=== PATIENT | male | born 1965 | race African-American/Black ===

== ENCOUNTER 2018-07-09 08:18 | Outpatient (CLI) | payer MEDICARE, MEDICAID ==
--- NOTE | 2018-07-09 09:16 | RAD ---
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 FINDINGS: There is moderate multilevel end plate degenerative change as well as facet osteoarthritis. A mild d egree of spondylolisthesis (grade I) is present at L4-5. No acute compression fracture. IMPRESSION: Multilevel degenerative change in the lumbar spine. There is grade I spondylolisthesis at L4-5. POS: C
--- NOTE | 2018-07-09 10:51 | MRI ---
MRI of the lumbar spine: 07/09/2018 COMPARISON: None available HISTORY: Low back pain radiating into bilateral lower extremities with numbness and tingling TECHNIQUE: Multiplanar multisequence MR imaging of the lumbar spine is obtained without contrast. FINDINGS: The sagittal STIR imaging demonstrates no focal area of osseous marrow edema. On the basis of congenitally short pedicles there is prominent diffuse central canal stenosis noted t hroughout the lumbar spine. Assuming 5 lumbar type vertebral bodies, the conus medullaris terminates at the T12-L1 level. T12-L1: There is bilateral facet hypertrophy and hypertrophy of the ligamentum flavum. There is mild central canal stenosis. Mild bilateral neural foraminal stenosis. L1-2: Bilateral facet hypertrophy and hypertrophic ligamentum flavum. Mild central canal stenosis and mild bilateral neural foraminal stenosis. L2-3: There is disc space narrowing and disc desiccation with mild disc bulge. There is prominent anthony ateral facet hypertrophy and hypertrophy of the ligamentum flavum with mild/moderate central canal stenosis and mild bilateral neural foraminal stenosis. L3-4: There is disc space narrowing disc desiccation and disc bulge. There is prominent bilateral fac et hypertrophy and hypertrophy of the ligamentum flavum with severe central canal stenosis and moderate bilateral neural foraminal stenosis. L4-5: There is disc space narrowing, disc desiccation, and disc bulge. There is prominent bilateral f acet hypertrophy and hypertrophy of the ligamentum flavum with severe central canal stenosis and moderate bilateral neural foraminal stenosis, left greater than right. L5-S1: Disc space narrowing disc desiccation and disc bulge with moderate/severe central canal stenos is. Prominent bilateral facet hypertrophy with severe right and moderate left neural foraminal stenosis. The imaged retroperitoneal structures appear grossly unremarkable. 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 Multilevel degenerative disc disease and facet hypertrophic change leads to a prominent central canal and neural foraminal stenosis at numerous levels as detailed above.
== END 2018-07-09 08:19 | disposition home or self-care (01) ==
LOC: BICMRI 08:18
PROVIDERS: ATTEND Family Medicine
DX: M47.26 Other spondylosis with radiculopathy, lumbar region (principal); G89.4 Chronic pain syndrome; M51.16 Intervertebral disc disorders with radiculopathy, lumbar region; M43.16 Spondylolisthesis, lumbar region; M48.061 Spinal stenosis, lumbar region without neurogenic claudication; M48.07 Spinal stenosis, lumbosacral region
CPT/HCPCS: 72100; 72148

== ENCOUNTER 2020-01-29 18:14 | Inpatient (IN) | payer MEDICARE, MEDICAID ==
[~2020-01-29 18:14] MED LIST: Iopamidol-370 76% 500 ML 1 ML ONE
[2020-01-29] MEDS ORDERED: Cefepime 2 GM VIAL ONE (18:32)
[2020-01-29] MEDS ORDERED: Clindamycin/D5W 900 mg/50 ml Premix Bag ONE (18:32)
[2020-01-29 18:51] LABS: Hemoglobin 8.7 g/dL (14.0-18.0); Mean Corpuscular HGB CONC 30.8 g/dL (32.0-36.0); Mean Corpuscular Hemoglobin 23.8 pg (27.0-31.0); Mean Corpuscular Volume 77.5 fL (78.0-98.0); Platelet Count 572 thou/uL (130-400); RBC Distribution Width 16.9 % (11.5-14.5); Red Blood Cell (RBC) Count 3.66 mill/uL (4.70-6.10); White Blood Cell (WBC) Count 11.9 thou/uL (4.8-10.8)
--- NOTE | 2020-01-29 19:13 | CT ---
PELVIC CT WITH CONTRAST: HISTORY: Right gluteal wound FINDINGS: Visualized solid organs, alimentary canal and retroperitoneal structures do not demonstrate any acute abnormality. There is no acute abnormality with regards to the perineum or pelvic structures. There is destruction of the right aspect of the sacrum. There is abnormal soft tissue attenuation rep lacing the right aspect of the sacrum, including encroachment upon the right S1 and S2 and S3 neural foramina. Abnormal soft tissue density is noted posterior/superior to the sacrum as well as an terior to the sacrum along the right hemipelvis/expected course of the sacral plexus. There is lucency and destruction involving the right sacrum and right ischium. There is atrophy of the right gluteal musculature. There is an air pocket with a thick wall along the posterior aspect of the proximal right extremity. This lesion measures 5.0 x 2.5 cm. There is a connection with the overlying dermis. Small amounts of fluid are noted. Additionally there is a large r more inferior collection with small pockets of air and fluid measuring 7.8 x 3.0 cm. Induration of the overlying dermis is noted. There is also induration along the medial aspect of the left and ri ght gluteal region. Additional inflammatory changes are noted in the medial left subcutaneous fat extending into the dermis. Inflammatory change extends to the tip of the coccyx. IMPRESSION: 1. Abnormal soft tissue density involving the right aspect of the sacrum. There is extension into the right iliac bone as well as the anterior right pelvic soft tissues, along the expected region of the sacral plexus. The possibility of a metastatic/malignant lesion cannot be excluded. 2. Extensive inflammatory and infectious changes involving the left and right gluteal subcutaneous fa t and soft tissues. There are at least 2 separate soft tissue abscesses identified. There is abnormal induration involving the left and right aspect of the gluteal soft tissues. There is also ab normal inflammatory change at the tip of the coccyx. Results study discussed with Dr. Castro 01/29/2020 at 7:12 PM Code CR Transcribed Date/Time: 01/29/2020 7:29 PM
[2020-01-29 19:18] LABS: Band 28 % (5-11); Eosinophils 1 % (0-10); Hypochromia SLIGHT = 6-15 cells (100X) (0-5/hpf); Lymphocytes 15 % (21-51); MDiff Complete? YES; Microcytosis SLIGHT = 6-15 cells (100X) (0-5/hpf); Monocytes 5 % (0-10); Neutrophil 49 % (42-75); Platelet Morphology Comment Appears Increased; Polychromasia SLIGHT = 2-3 cells (100X) (0-2/hpf); Reactive Lymphocytes 1 % (0-10); Target Cells SLIGHT = 2-5 cells (100X) (0-1/hpf)
[2020-01-29 19:20] LABS: Actual Bicarbonate (HCO3v) 27 mEq/L (22-28); Analyzer IN Cardio ER; Base Excess 3.5 mEq/L (-2.0 to +3.0); Calcium, Ionized (venous) 1.22 mmol/L (1.16-1.32); Chloride (VBG) 106 mmol/L (98-106); Hemoglobin (Hb) 9.3 g/dL (13.1-17.2); Potassium (VBG) 3.64 mmol/L (3.70-5.30); Sodium 140.2 mmol/L (133-146); pH (venous) 7.49 (7.32-7.43)
[2020-01-29] MEDS ORDERED: Morphine 4 MG/ML VIAL ONE (19:31)
[2020-01-29 20:15] LABS: ALT (SGPT) 14 U/L (8-55); AST (SGOT) 15 U/L (5-34); Alkaline Phosphatase 91 U/L (40-110); Anion Gap 15 mmol/L (10-20); BUN (Urea Nitrogen) 8 mg/dL (8.4-25.7); Bilirubin, Total 0.2 mg/dL (0.2-1.2); Calc. Creatinine Clearance 178 mL/min (70-130); Calcium 9.5 mg/dL (7.8-10.44); Carbon Dioxide 26 mmol/L (22-29); Chloride 106 mmol/L (98-107); Globulin 4.5 g/dL (2.4-3.5); Glucose 109 mg/dL (70-105); Potassium 3.7 mmol/L (3.5-5.1); Protein, Total 7.5 g/dL (6.0-8.3); Sodium 143 mmol/L (136-145)
--- NOTE | 2020-01-29 20:48 | RAD ---
Exam:2 views right hip HISTORY: Large gluteal wound. Pressure ulcers and gluteal region COMPARISON: None FINDINGS: Extensive subcutaneous emphysema and soft tissue swelling. IMPRESSION: Soft tissue swelling and subcutaneous emphysema compatible with known abscesses. Refer to pelvic CT for further detail.
[2020-01-29] MEDS ORDERED: Acetaminophen 325 MG TAB PO PRN (23:45)
[2020-01-29] MEDS ORDERED: Sodium Chloride 0.9% 1,000 ML IV SCH (23:45)
[2020-01-30] MEDS ORDERED: HYDROcodone/Acetaminophen 5/325 mg Tablet PO PRN ×2 (00:04→06:35)
[2020-01-30] MEDS ORDERED: hydrALAZINE 20 MG/ML VIAL SLOW IVP PRN ×2 (00:04→06:35)
[2020-01-30] MEDS ORDERED: cloNIDine 0.1 MG TAB PO PRN ×2 (00:04→06:35)
[2020-01-30] MEDS ORDERED: Promethazine HCl 12.5 MG in Sodium Chloride 0.9% 50 ML IVPB PRN ×2 (00:04→06:35)
[2020-01-30] MEDS ORDERED: Ondansetron PF 4 MG/2 ML Vial IVP PRN ×2 (00:04→06:35)
[2020-01-30] MEDS ORDERED: Acetaminophen 325 MG TAB PO PRN ×2 (00:04→06:35)
[2020-01-30] MEDS ORDERED: Guaifenesin DM 100-10/5 ML UDCUP PO PRN ×2 (00:04→06:35)
[2020-01-30] MEDS ORDERED: Morphine 2 MG/ML VIAL SLOW IVP PRN ×2 (00:04→09:24)
[2020-01-30] MEDS ORDERED: Labetalol HCl 100 MG/20 ML VIAL SLOW IVP PRN ×2 (00:04→06:35)
--- NOTE | 2020-01-30 00:06 | PDOC.HHP ---
Hospitalist HPI - History of Present Illness R back/gluteal pain History of Present Illness: Pateint is a 54 year old male with PMH GERD, HTN, DM2, Chronic back pain who presents to ED for R gluteal plain/back/hip pain. Patient has a history of GERD, HTN, DM2, Chronic back pain, and chronic R gluteal abscesses/wounds, patient reports that his wounds have been there since 1995 and he manages them by himsel f at home. In ED, patient tachycardic, wounds appear erythematous and erythematous and tunneling, Imaging reveals mulitple abscesses, Dr Del Real consulted and requests NPO past midnight. WBC 11.9, hgb 8.7. Patient given broad spectrum ABX, to be admitted for sepsis and infected sacral wounds. of note, CT pelvis mentions infection tracks from right aspect of the sacrum w/ extension into the right iliac bone as well as the anterior right pelvic soft tissues, along the expected region of the sacral plexus. There are at least 2 separate soft tissue abscesses identified on CT with extensive inflammation. Hospitalist ROS - Review of Systems Constitutional: reports: weakness, malaise. denies: fever, chills, sweats, other Eyes: denies: pain, vision change, conjunctivae inflammation, eyelid inflammation, redness, other ENT: denies: ear pain, ear discharge, nose pain, nose discharge, nose congestion, mouth pain, mouth swelling, throat pain, throat swelling, other Respiratory: denies: cough, dry, shortness of breath, hemoptysis, SOB with excertion, pleuritic pain, sputum, wheezing, other Cardiovascular: denies: chest pain, palpitations, orthopnea, paroxysmal noc. dyspnea, edema, light headedness, other Gastrointestinal: denies: nausea, vomiting, abdominal pain, diarrhea, constipation, melena, hematochezia, other Genitourinary: denies: dysuria, frequency, incontinence, hematuria, retention, other Musculoskeletal: reports: back pain. denies: neck pain, shoulder pain, arm pain, hand pain, leg pain, foot pain, other Skin: reports: rash, lesions, other (per HPI) Neurological: denies: weakness, numbness, incoordination, change in speech, confusion, seizures, other All other systems reviewed; all pertinent +/- noted in HPI/Subj - Medication Medications: Tylenol-Codeine #3 ThuJan 29, 2020 20:24 TIFFANIE Andrew Jeffery tablet : Strength - 300 mg-30 mg : ORAL Patient Dose: 1 tab(s) Oral every 6 hours PRN. amoxicillin ThuJan 29, 2020 20:24 TIFFANIE Andrew Jeffery capsule : Strength - 500 mg : ORAL Patient Dose: 1 cap(s) Oral 2 times a day. ferrous sulfate ThuJan 29, 2020 20:25 TIFFANIE Andrew Jeffery tablet,delayed release (DR/EC) : Strength - 324 mg (65 mg iron) : ORAL Patient Dose: 1 tab(s) Oral 2 times a day. clindamycin phosphate topical ThuJan 29, 2020 20:26 TIFFANIE Andrew Jeffery lotion : Strength - 1 % : TOPICAL Patient Dose: 1 nisha Topical 2 times a day. FLUoxetine ThuJan 29, 2020 20:26 TIFFANIE Andrew Jeffery capsule : Strength - 20 mg : ORAL Patient Dose: 1 tab(s) Oral once a day (in the morning). atenolol ThuJan 29, 2020 20:26 TIFFANIE Andrew Jeffery tablet : Strength - 25 mg : ORAL Patient Dose: 1 tab(s) Oral once a day. diazePAM oral ThuJan 29, 2020 20:27 TIFFANIE Andrew Jeffery tablet : Strength - 10 mg : ORAL Patient Dose: 1 tab(s) Oral every 8 hours PRN. metFORMIN ThuJan 29, 2020 20:28 TIFFANIE Andrew Jeffery solution : Strength - 500 mg/5 mL : ORAL Patient Dose: 1.5 mg Oral once a day. traMADol ThuJan 29, 2020 20:28 TIFFANIE Andrew Jeffery tablet : Strength - 50 mg : ORAL Patient Dose: 1-2 tab(s) Oral every 6 hours PRN. furosemide oral ThuJan 29, 2020 20:30 TIFFANIE Andrew Jeffery tablet : Strength - 20 mg : ORAL Patient Dose: 0.5 tab(s) Oral once a day.As needed for swelling BLE. - Exam General Appearance: NAD, awake alert Eye: PERRL, anicteric sclera ENT: normocephalic atraumatic, no oropharyngeal lesions, moist mucosa Neck: supple, symmetric, no JVD, no thyromegaly, no lymphadenopathy, no carotid bruit Heart: RRR, no murmur, no gallops, no rubs, normal peripheral pulses Respiratory: CTAB, no wheezes, no rales, no ronchi, normal chest expansion, no tachypnea, normal percussion Gastrointestinal: soft, non-tender, non-distended, normal bowel sounds, no palpable masses, no hepatomegaly, no splenomegaly, no bruit Extremities: no cyanosis, no clubbing, no edema Skin: normal turgor Skin - other findings: extensive R gluteal and L gluteal abscesses, malodorous, appears to track Neurological: cranial nerve grossly intact, normal sensation to touch, no weakness, no focal deficits, no new deficit Musculoskeletal: normal tone, normal strength, no muscle wasting Psychiatric: normal affect, normal behavior, A&O x 3 Hospitalist Results - Labs Result Diagrams: 01/30/20 05:11 01/30/20 05:11 Lab results: WBC 11.9 thou/uL (4.8-10.8) H 01/29/20 18:22 Hgb 8.7 g/dL (14.0-18.0) L 01/29/20 18:22 Hct 28.4 % (42.0-52.0) L 01/29/20 18:22 MCV 77.5 fL (78.0-98.0) L 01/29/20 18:22 Plt Count 572 thou/uL (130-400) H 01/29/20 18:22 Band Neuts % (Manual) 28 % (5-11) H 01/29/20 18:22 VBG pH 7.49 (7.32-7.43) H 01/29/20 18:50 VBG pCO2 36.1 mmHg (42.0-51.0) L 01/29/20 18:50 VBG pO2 156.7 mmHg (35.0-45.0) H 01/29/20 18:50 Sodium 143 mmol/L (136-145) 01/29/20 19:34 Potassium 3.7 mmol/L (3.5-5.1) 01/29/20 19:34 Chloride 106 mmol/L (98-107) 01/29/20 19:34 Carbon Dioxide 26 mmol/L (22-29) 01/29/20 19:34 BUN 8 mg/dL (8.4-25.7) L 01/29/20 19:34 Creatinine 0.70 mg/dL (0.7-1.3) 01/29/20 19:34 Glucose 109 mg/dL (70-105) H 01/29/20 19:34 Lactic Acid 1.5 mmol/L (0.5-2.2) 01/29/20 18:22 Calcium 9.5 mg/dL (7.8-10.44) 01/29/20 19:34 Total Bilirubin 0.2 mg/dL (0.2-1.2) 01/29/20 19:34 AST 15 U/L (5-34) 01/29/20 19:34 ALT 14 U/L (8-55) 01/29/20 19:34 Alkaline Phosphatase 91 U/L (40-110) 01/29/20 19:34 Serum Total Protein 7.5 g/dL (6.0-8.3) 01/29/20 19:34 Albumin 3.0 g/dL (3.5-5.0) L 01/29/20 19:34 Additional comment: RADIOLOGY [facility] Jan 30, 2020 00:27 MD Matthew, Terrell XR Hip Rt 2-3 View Observe DT: [place] Jan 29, 2020 18:30 HIP2R Exam:2 views right hip HISTORY: Large gluteal wound. Pressure ulcers and gluteal region COMPARISON: None FINDINGS: Extensive subcutaneous emphysema and soft tissue swelling. IMPRESSION: Soft tissue swelling and subcutaneous emphysema compatible with known abscesses. Refer to pelvic CT for further detail. CT Pelvis W Con Observe DT: [place] Jan 29, 2020 18:[address] WITH CONTRAST: HISTORY: Right gluteal wound FINDINGS: Visualized solid organs, alimentary canal and retroperitoneal structures do not demonstrate any acute abnormality. There is no acute abnormality with regards to the perineum or pelvic structures. There is destruction of the right aspect of the sacrum. There is abnormal soft tissue attenuation rep lacing the right aspect of the sacrum, including encroachment upon the right S1 and S2 and S3 neural foramina. Abnormal soft tissue density is noted posterior/superior to the sacrum as well as an terior to the sacrum along the right hemipelvis/expected course of the sacral plexus. There is lucency and destruction involving the right sacrum and right ischium. There is atrophy of the right gluteal musculature. There is an air pocket with a thick wall along the posterior aspect of the proximal right extremity. This lesion measures 5.0 x 2.5 cm. There is a connection with the overlying dermis. Small amounts of fluid are noted. Additionally there is a large r more inferior collection with small pockets of air and fluid measuring 7.8 x 3.0 cm. Induration of the overlying dermis is noted. There is also induration along the medial aspect of the left and ri ght gluteal region. Additional inflammatory changes are noted in the medial left subcutaneous fat extending into the dermis. Inflammatory change extends to the tip of the coccyx. IMPRESSION: 1. Abnormal soft tissue density involving the right aspect of the sacrum. There is extension into the right iliac bone as well as the anterior right pelvic soft tissues, along the expected region of the sacral plexus. The possibility of a metastatic/malignant lesion cannot be excluded. 2. Extensive inflammatory and infectious changes involving the left and right gluteal subcutaneous fa t and soft tissues. There are at least 2 separate soft tissue abscesses identified. There is abnormal induration involving the left and right aspect of the gluteal soft tissues. There is also ab normal inflammatory change at the tip of the coccyx. Results study discussed with Dr. Castro 01/29/2020 at 7:12 PM Code CR Transcribed Date/Time: 01/29/2020 7:29 PM Hospitalist H&P A/P - Plan Plan: Pateint is a 54 year old male with PMH GERD, HTN, DM2, Chronic back pain who presents to ED for R gluteal plain/back/hip pain. # extensive gluteal wound with signs of tracking and likely osteomyelitis - patient reports that his wounds have been there since 1995 and he manages them by himself at home # sepsis - due to wound infection, tachycardia/leukocytosis, follow culture results sent In ED, patient tachycardic, wounds appear erythematous and erythematous and tu nneling, Imaging reveals mulitple abscesses, Dr Del Real consulted and requests NPO past midnight. WBC 11.9, hgb 8.7. Patient given broad spectrum ABX, to be admitted for sepsis and infected sacral wounds. of note, CT pelvis mentions infection tracks from right aspect of the sacrum w/ extension into the right iliac bone as well as the anterior right pelvic soft tissues, along the expected region of the sacral plexus. There are at least 2 separate soft tissue abscesses identified on CT with extensive inflammation. - appreciate surgery Dr. Del Real expertise, patient NPO - MRI pelvis and spine ordered to confirm or rule out osteomyelitis and also to ensure no epidural abscesses - start vancomycin/unasyn - consider ID consult if osteo confirmed on MRI # GERD # HTN # DM2 # Chronic back pain - continue home meds, SSI, PRN HTN and pain medications ordered
[2020-01-30] MEDS ORDERED: Electrolyte Replacement Protocol 1 EACH FS PRN ×2 (00:15→06:45)
[2020-01-30] MEDS: Ampicillin/Sulbactam 3 GM in Sodium Chloride 0.9% 100 ML IVPB SCH ×4 (00:25→18:15)
[2020-01-30 00:56] VITALS: BMI 34.8
[2020-01-30] MEDS: Vancomycin 1.5 GRAM/300 ML BAG 1.5 GM in Premix Bag 1 BAG IVPB SCH ×2 (04:56→13:21)
[2020-01-30 05:06] LABS: SARS-CoV-2 MS2 Positive; SARS-CoV-2 N Gene Negative; SARS-CoV-2 S Gene Negative; SARS-CoV-2 by NAA Not Detected (NotDetected); SARS-CoV-2 orf1ab Negative
[2020-01-30 05:23] LABS: #Eosinphils 0.1 thou/uL (0.0-0.7); #Lymphocytes 1.6 thou/uL (1.20-3.40); #Monocytes 1.1 thou/uL (0.11-0.59); #Neutrophils 6.8 thou/uL (1.40-6.50); %Basophils 0.1 % (0.0-1.0); %Eosinophils 1.5 % (0.0-10.0); %Lymphocytes 16.4 % (21.0-51.0); %Monocytes 11.2 % (0.0-10.0); %Neutrophils 70.8 % (42.0-75.0); Mean Corpuscular HGB CONC 30.4 g/dL (32.0-36.0); Mean Corpuscular Hemoglobin 23.3 pg (27.0-31.0); Mean Corpuscular Volume 76.7 fL (78.0-98.0); Mean Platelet Volume 7.8 fL (7.4-10.4); Platelet Count 486 thou/uL (130-400); RBC Distribution Width 16.8 % (11.5-14.5); Red Blood Cell (RBC) Count 3.41 mill/uL (4.70-6.10); White Blood Cell (WBC) Count 9.6 thou/uL (4.8-10.8)
[2020-01-30 05:46] LABS: Anion Gap 12 mmol/L (10-20); BUN (Urea Nitrogen) 6 mg/dL (8.4-25.7); Calc. Creatinine Clearance 215 mL/min (70-130); Calcium 9.3 mg/dL (7.8-10.44); Carbon Dioxide 25 mmol/L (22-29); Chloride 106 mmol/L (98-107); Glucose 110 mg/dL (70-105); Magnesium 1.8 mg/dL (1.6-2.6); Potassium 3.7 mmol/L (3.5-5.1); Sodium 139 mmol/L (136-145)
[2020-01-30] MEDS ORDERED: Magnesium 2 GM/50 ML 2 GM in Premix Bag 1 BAG IVPB SCH ×2 (06:30→08:00)
[2020-01-30] MEDS ORDERED: Dextrose 5% in Water 1,000 ML IV PRN (06:53)
[2020-01-30] MEDS ORDERED: Dextrose 50% Abboject 50 ML SYRINGE SLOW IVP PRN (06:53)
[2020-01-30] MEDS ORDERED: HumaLOG 300 UNITS/3 ML VIAL SC PRN (06:53)
--- NOTE | 2020-01-30 07:28 | PRG ---
DATE OF SERVICE: 01/30/2020 I personally interviewed and examined the patient, agree with documentation of Mekhi Choi PA-C, dated 01/30/2020. Briefly, Master Camejo is a 54-year-old gentleman, who has been noticing for at least a number of months some low back pain in the midline and off to the right. He began to feel ill and came to the hospital for evaluation. CT examination of pelvis revealed a lytic lesion in the right side of the sacrum involving the S1 and S2 segments. This seems to be round and expansile of the bone itself. Mr. Camejo does not remember having significant fevers or chills at home. Among the electronically recorded vital signs, I do not see any fevers. The T-max was 99.1 degrees Fahrenheit. Blood pressures have been 130s to 140s. Heart rate is in the 80s to 90s. On examination, Mr. Camejo feels more comfortable, lying on his left side than on his back or his right. He has some pain, which is quite severe and tenderness in the low back over the sacrum. There is some radiation of that pain in the S1 distribution and some in the S2 as well. I reviewed CT imaging, but I do not see MR imaging. I do not see an MR with contrast of the chest, abdomen, and pelvis looking for primary malignancy. Mr. Camejo needs further workup. I am not convinced this is abscess. This just as likely or perhaps more so to be a metastatic lesion. The lesion does not look blastic, but rather lytic and expansile. CT of the chest, abdomen, and pelvis, and MRI with and without contrast of the sacrum, both helpful in determining the diagnosis. If we are still left with questions, then a CT-guided aspirate with cytology will be helpful. If this turns out to be a sacral tumor, it is not an area where I have operated in quite some time and he would benefit from referral elsewhere with the need of surgical intervention on the sacral lesion. Job ID: [id number]
--- NOTE | 2020-01-30 08:04 | CON ---
DATE OF CONSULTATION: 01/30/2020 HISTORY OF PRESENT ILLNESS: Mr. Camejo is a 54-year-old male with past medical history of diabetes, hypertension, GERD, chronic back pain. He presented to the emergency room with a right gluteal pain radiating to his back and right lower extremity. He reports that his abscess has been there since 1995 and continues to grow and now there is concern that the abscess has entered into the spinal cord area causing an epidural abscess. He declines any right leg weakness, but does have general weakness and malaise. REVIEW OF SYSTEMS: CONSTITUTIONAL: Denies fever or chills. ENT: Denies change of vision or hearing. CARDIAC: Denies chest pain, shortness of breath, or diaphoresis. PULMONARY: Denies shortness of breath, cough, or hemoptysis. GI: Denies abdominal pain, nausea, vomiting, diarrhea, or change in stool formation or consistency. : Denies trouble with urination, frequency of urination, or bloody urine. SKIN: Reports abscess in the right gluteal. Denies bleeding. MUSCULOSKELETAL: As per history of present illness. PSYCHOLOGICAL: As per history of present illness. NEUROLOGICAL: As per history of present illness. MEDICATIONS: 1. Tylenol No. 3. 2. Amoxicillin 500 mg. 3. Ferrous sulfate 324 mg. 4. Clindamycin topical 1%. 5. Fluoxetine 20 mg. 6. Atenolol 25 mg. 7. Diazepam 10 mg. 8. Metformin 500 mg. 9. Tramadol 50 mg. 10. Furosemide 20 mg. ALLERGIES: NO KNOWN DRUG ALLERGIES. MEDICAL HISTORY: GERD, hypertension, diabetes, chronic back pain, right gluteal abscess in 1995. PAST SURGICAL HISTORY: No surgical history. SOCIAL HISTORY: The patient denies alcohol use. The patient currently uses marijuana. The patient occasionally uses alcohol. FAMILY HISTORY: Noncontributory to this case. PHYSICAL EXAMINATION: VITAL SIGNS: BP 140/80, pulse 83, and temperature 98.7. HEENT: Pupils are equal. Extraocular movements are intact. NECK: Soft, supple. No masses are noted. Range of motion is intact and nonpainful. NEUROLOGIC: Awake, alert, and oriented x3. Memory, attention, fund of knowledge, and language are normal. Cranial nerves are grossly intact. Lower extremities, normal. Free active range of motion in all extremities. No focal motor weakness. No reflex asymmetry. IMAGING: Pelvic CT, there is extensive inflammation and infection change involving the left and right gluteal subcutaneous soft tissues. There is abnormal induration involving the left and right aspect of the gluteal soft tissues. There is also abnormal inflammation and change in the tip of the coccyx. There is question if this infection is encroaching the spinal cord causing an epidural abscess. LABORATORY DATA: WBC 19.9, RBC 3.66, hemoglobin 8.7, platelets 572. Sodium 143. PLAN: MRI of spine and pelvis with and without contrast. Question of muscular abscess, osteomyelitis or neoplasm. Further evaluation and treatment following the MRI. Continue current antibiotics. Job ID: [id number] [facility]
[2020-01-30] MEDS ORDERED: Famotidine 20 MG TAB PO SCH (09:00)
[2020-01-30] MEDS ORDERED: Heparin 5,000 UNITS/ML VIAL SC SCH (09:00)
[2020-01-30] MEDS: HYDROcodone/Acetaminophen 5/325 mg Tablet PO PRN ×3 (09:49→22:22)
[2020-01-30] MEDS: Heparin 5,000 UNITS/ML VIAL SC SCH ×3 (09:50→21:08)
[2020-01-30] MEDS: Famotidine 20 MG TAB PO SCH ×2 (09:53→21:08)
[2020-01-30] MEDS: Morphine 4 MG/ML VIAL SLOW IVP PRN ×3 (10:03→21:08)
[2020-01-30] MEDS: Polyethylene Glycol 3350 17 GM Packet PO SCH (10:05)
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
[2020-01-30] MEDS ORDERED: Iopamidol-370 76% 500 ML 1 ML ONE (13:09)
--- NOTE | 2020-01-30 14:27 | CT ---
EXAM: CT NECK SOFT TISSUE POST CONTRAST: HISTORY:Cancer workup. Pelvic pain. COMPARISON:None CORRELATION:None FINDINGS: Brain parenchyma: No pathologic enhancement of the visualized brain parenchyma. Sinuses: Adequate aeration of the visualized paranasal sinuses and mastoid air cells. Orbits: Appropriate location of the ocular lenses. Symmetric attenuation the optic nerves and ocular rectus muscles. Retrobulbar fat is preserved. Nasopharynx:Adequate aeration. No mucosal abnormality. Oral cavity:Aerodigestive tract is patent. No mucosal abnormality. Limited evaluation of the oral cav ity due to dental amalgam artifact. Midline fatty raphae of the tongue is preserved. There are extensive dental caries. Hypopharynx: No mucosal abnormality. Epiglottis has a normal caliber. Preepiglottic fat is preserved .. Larynx: No mucosal abnormality with regards to the supraglottic, glottic and subglottic larynx. Paraspinal muscles: Symmetric attenuation of the paraspinal muscles and symmetric attenuation of the sternocleidomastoid muscles.. Parotid and salivary glands: Symmetric attenuation of the parotid and submandibular glands Vessels: No significant stenosis. Technique limits evaluation. Evaluation of the common carotid arter ies results in mass effect upon the posterior hypopharynx. Thyroid gland: Unremarkable. Spine: Vertebral body height is maintained. No fracture. Multilevel degenerative changes of the cervi jese spine. There are varying degrees of central canal stenosis and foraminal narrowing, due to degenerative change Lymph nodes: No evidence of lymphadenopathy by size criteria Lung apices and upper mediastinum: No acute abnormality. IMPRESSION: No CT evidence of mass or lymphadenopathy in the soft tissues of the neck. There is extensive periodo ntal disease with multiple dental caries. Exam: Chest CT with contrast Abdomen CT with contrast Pelvic CT with contrast HISTORY: Sacral mass/neoplasm. Evaluate for additional lesions. Correlation: None COMPARISON: Pelvic CT 01/29/2020 FINDINGS: Chest CT: Mediastinum: No mass, lymphadenopathy or hematoma Aorta: Normal caliber Heart: Normal heart size. No significant pericardial effusion Trachea and central bronchi: Patent Pleural spaces: No significant pleural fluid Right lung: Scarring and atelectasis in the lower lobe. No mass, consolidation or suspicious nodules Left lung:No mass, consolidation or suspicious nodules Pneumothorax: None Abdomen CT: Gallbladder: Unremarkable Portal vein: Patent Liver: Appropriate enhancement. Spleen: Appropriate enhancement Pancreas: Appropriate enhancement Adrenal glands: Appropriate enhancement Lymphadenopathy: No gastrohepatic, retrocrural or periportal lymphadenopathy Kidneys: Symmetric enhancement. No obstructive uropathy. Mesentery: No mass, lymphadenopathy, free air or free fluid Alimentary canal: No evidence of bowel obstruction. Normal ileocecal junction. Normal caliber appendi x. Scattered fecal material in a nondistended, nondilated colon. Pelvis CT: No free air or free fluid. Unremarkable urinary bladder. Enlarged right pelvic lymph node measures 1. 8 x 1.4 cm. There is edema and enlargement of the right pelvic muscle with hypoattenuation. Intramuscular hematoma or possible infected fluid collection are differential considerations. There i s a destructive mass involving the right aspect of the sacrum with mild destruction of the right ischium. There are multiple areas of soft tissue infection artery described on previous CT. Osseous structures:Sacral lesion as described above. Additional lesions are not identified. IMPRESSION: Solitary lesion in the sacrum, worrisome for a malignant deposit. Lesion is amenable to CT-guided bio psy
--- NOTE | 2020-01-30 16:39 | PDOC.HOSPP ---
- Subjective Encounter Date: 01/30/20 Subjective: Seen and examined at bedside this morning. Denies any significant overnight events. Remains with significant sacral/pelvic pain mainly exacerbated by position/movement. Denies any fever or chills. He has a history of chronic abscess to buttocks area dating many years back. Currently being evaluated for abscess, osteomyelitis and possible metastatic lesion to pelvis. - Objective Vital Signs & Weight: Vital Signs (12 hours) Temp Pulse Resp BP Pulse Ox 01/30/20 11:07 99.2 F 91 16 133/71 94 L 01/30/20 08:00 97.7 F 89 16 135/77 97 Weight Weight 229 lb 1 oz I&O: 01/29/20 01/30/20 01/31/20 06:59 06:59 06:59 Intake Total 1320 Output Total 1300 Balance 20 Result Diagrams: 01/30/20 05:11 01/30/20 05:11 Additional Labs: Accuchecks 01/30/20 01/30/20 15:58 11:08 POC Glucose 69 L 99 Radiology Reviewed by me: Yes Hospitalist ROS - Review of Systems Constitutional: reports: weakness (Refers generalized weakness). denies: fever, chills, sweats, malaise, other Eyes: denies: pain, vision change, conjunctivae inflammation, eyelid inflammation, redness, other Respiratory: denies: cough, dry, shortness of breath, hemoptysis, SOB with excertion, pleuritic pain, sputum, wheezing, other Cardiovascular: denies: chest pain, palpitations, orthopnea, paroxysmal noc. dyspnea, edema, light headedness, other Gastrointestinal: denies: nausea, vomiting, abdominal pain, diarrhea, constipation, melena, hematochezia, other Musculoskeletal: reports: back pain, other (Pelvic/sacral pain) Skin: reports: rash, lesions, other (Chronic wound to buttocks, no significant discharge or malodor) - Medication Medications: Active Medications Generic Name Dose Route Start Last Admin Trade Name Freq PRN Reason Stop Dose Admin Hydrocodone Bitart/Acetaminophen 2 tab 01/30/20 09:24 01/30/20 09:49 Hydrocodone/Acetaminophen 5/325 Mg Tablet PO 2 tab Q4H PRN Administration Severe Pain (7-10) Famotidine 20 mg 01/30/20 09:00 01/30/20 09:53 Famotidine 20 Mg Tab PO 20 mg BID JARRET Administration Heparin Sodium (Porcine) 5,000 units 01/30/20 09:00 01/30/20 09:52 Heparin 5,000 Units/Ml Vial SC 5,000 units BID JARRET Administration Ampicillin Sodium/Sulbactam 100 mls @ 200 mls/hr 01/29/20 23:59 01/30/20 13:22 Sodium 3 gm/ Sodium Chloride IVPB 100 mls Q6HR JARRET Administration Vancomycin HCl 1.5 gm/ Device 300 mls @ 200 mls/hr 01/30/20 04:00 01/30/20 13:21 IVPB 300 mls 0400,1200,2000 JARRET Administration Morphine Sulfate 4 mg 01/30/20 09:24 01/30/20 16:21 Morphine 4 Mg/Ml Vial SLOW IVP 4 mg Q4H PRN Administration Breakthrough Pain Polyethylene Glycol 17 gm 01/30/20 09:00 01/30/20 10:05 Polyethylene Glycol 3350 17 Gm Packet PO 17 gm DAILY JARRET Administration - Exam General Appearance: NAD, awake alert Heart: RRR, no murmur, no gallops, no rubs, normal peripheral pulses Respiratory: CTAB, no wheezes, no rales, no ronchi, normal chest expansion, no tachypnea, normal percussion Gastrointestinal: soft, non-tender, non-distended, normal bowel sounds, no palpable masses, no hepatomegaly, no splenomegaly, no bruit Extremities: no cyanosis, no clubbing, no edema Skin - other findings: Chronic wounds to gluteal area, possible tunneling Hosp A/P - Plan A/P: Back pain with evidence of chronic wounds to gluteal area. Imaging suggestive of possible abscess with fluid collection as well as destructive lesion to pelvis. # Back pain: Back/right gluteal/pelvic/sacral pain appears to be multifactorial and related to chronic pelvic abscesses as well as possible desctructive lesion to pelvic bone. CT with contrast of chest/abd/pelvis did not reveal other concerning lesions. Patient did not tolerate MRI of the spine to rule out osteo/epidural abscess. Discussion remains as to what is the best next step in management. Surgery and neurosurgery teams follow. Continue with current course of antibiotics. Will await further input from multidisciplinary team. 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 During exam patient does not appear septic. Will continue current antibiotic regimen. Pending further work up will consider ID consultation for further recommendations at time of discharge. # Destructive bone lesion: CT C/A/P w contrast without evidence of other lesions. Pelvic structure could be amenable for CT guided biopsy. Will await further input by surgery & neurosurgery. Keep NPO after midnight. # HTN: Continue with current medication regimen. # DM: Continue with current medication regimen. DISPOSITION: Multiple issues including chronic abscesses to pelvic region and destructive structure to bone. Possible CT guided biopsy to the area vs transfer to other facility for higher level of care. Will consider ID input once next step from surgical stand point is better defined.
[2020-01-30 19:19] LABS: Vancomycin, Trough 41.8 ug/mL
[2020-01-30] MEDS ORDERED: Vancomycin 1.5 GRAM/300 ML BAG 1.5 GM in Premix Bag 1 BAG IVPB SCH (20:00)
[2020-01-31] MEDS: Ampicillin/Sulbactam 3 GM in Sodium Chloride 0.9% 100 ML IVPB SCH ×4 (00:05→20:07)
[2020-01-31] MEDS: Vancomycin HCl 1.25 GM in Sodium Chloride 0.9% 250 ML 250 ML IVPB SCH ×3 (00:05→16:55)
[2020-01-31] MEDS: Morphine 4 MG/ML VIAL SLOW IVP PRN ×3 (01:07→23:29)
[2020-01-31] MEDS: HYDROcodone/Acetaminophen 5/325 mg Tablet PO PRN ×4 (02:44→20:02)
[2020-01-31 05:39] LABS: #Eosinphils 0.3 thou/uL (0.0-0.7); #Lymphocytes 1.4 thou/uL (1.20-3.40); #Neutrophils 5.9 thou/uL (1.40-6.50); %Basophils 0.2 % (0.0-1.0); %Eosinophils 3.2 % (0.0-10.0); %Lymphocytes 16.6 % (21.0-51.0); %Monocytes 11.5 % (0.0-10.0); %Neutrophils 68.5 % (42.0-75.0); Mean Corpuscular HGB CONC 30.3 g/dL (32.0-36.0); Mean Corpuscular Hemoglobin 23.7 pg (27.0-31.0); Mean Corpuscular Volume 78.2 fL (78.0-98.0); Mean Platelet Volume 7.7 fL (7.4-10.4); Platelet Count 467 thou/uL (130-400); RBC Distribution Width 16.7 % (11.5-14.5); Red Blood Cell (RBC) Count 3.37 mill/uL (4.70-6.10); White Blood Cell (WBC) Count 8.6 thou/uL (4.8-10.8)
[2020-01-31 05:56] LABS: ALT (SGPT) 8 U/L (8-55); AST (SGOT) 9 U/L (5-34); Albumin 2.6 g/dL (3.5-5.0); Alkaline Phosphatase 79 U/L (40-110); Anion Gap 11 mmol/L (10-20); BUN (Urea Nitrogen) 4 mg/dL (8.4-25.7); Bilirubin, Direct 0.1 mg/dL (0.1-0.3); Bilirubin, Total 0.2 mg/dL (0.2-1.2); Calc. Creatinine Clearance 208 mL/min (70-130); Calcium 9.3 mg/dL (7.8-10.44); Carbon Dioxide 27 mmol/L (22-29); Chloride 104 mmol/L (98-107); Glucose 108 mg/dL (70-105); Potassium 3.4 mmol/L (3.5-5.1); Protein, Total 6.6 g/dL (6.0-8.3); Sodium 139 mmol/L (136-145)
[2020-01-31] MEDS ORDERED: Magnesium 2 GM/50 ML 2 GM in Premix Bag 1 BAG IVPB SCH (06:30)
[2020-01-31] MEDS ORDERED: Potassium Chloride 20 MEQ TAB PO SCH (06:45)
--- NOTE | 2020-01-31 07:19 | PRG ---
DATE OF SERVICE: 01/31/2020 When I saw Mr. Camejo this morning, I was anticipating an MR imaging, but I do not see any. He still has the posterior gluteal pain radiating to the right hip and upper thigh. There is no pain radiating past the knee, but there is numbness in the bottom of both feet. Among the electronically recorded vital signs, I see a maximum temperature of 99.3 degrees Fahrenheit. Blood pressures have been in the 130s to 140s. I do not find any change on his examination. I will await the results of the MR. If this is obvious abscess given the infectious processes in the gluteal area in the tip of the coccyx, then antibiotics will be the treatment without surgical intervention. If this is tumor, we will need to search for a primary. I have spoken with each of the 3 other neurosurgeons in our group. None of whom have operated on sacral tumor since residency, so it will be beneficial to him to have a tumor resection where there is a multidisciplinary pelvic surgery, orthopedic surgery and neurosurgery team. If imaging is equivocal with regard to tumor versus abscess, then, a needle biopsy could be contemplated and a culture. Job ID: [id number] MTDD
[2020-01-31] MEDS: Polyethylene Glycol 3350 17 GM Packet PO SCH (09:19)
[2020-01-31] MEDS: Famotidine 20 MG TAB PO SCH ×2 (09:19→20:02)
[2020-01-31] MEDS: Heparin 5,000 UNITS/ML VIAL SC SCH ×2 (09:19→20:02)
[2020-01-31] MEDS ORDERED: Magnevist 469MG/ML 20 ML VIAL ONE ×2 (10:47)
[2020-01-31] MEDS ORDERED: Morphine 4 MG/ML VIAL SLOW IVP PRN (11:54)
--- NOTE | 2020-01-31 13:08 | PDOC.GSPN ---
Surgery Progress Note: Subj - Subjective Narrative: Patient in MRI. Await results/ neurosurgery recommendations. Will likely require transfer to address pelvic lesion. Surgery Progress Note: Obj - Vital signs Vital signs: Vital Signs - Most Recent Temp Pulse Resp BP Pulse Ox 97.4 F L 78 12 153/94 H 99 01/31/20 12:19 01/31/20 12:19 01/31/20 12:19 01/31/20 12:19 01/31/20 12:19 Surgery Progress Note: Results - Labs Result Diagrams: 01/31/20 05:13 01/31/20 05:13 Lab results: Laboratory Results - last 12 hr 01/31/20 01/31/20 01/31/20 05:13 05:13 11:22 WBC 8.6 RBC 3.37 L Hgb 8.0 L Hct 26.4 L MCV 78.2 MCH 23.7 L MCHC 30.3 L RDW 16.7 H Plt Count 467 H MPV 7.7 Neutrophils % 68.5 Lymphocytes % 16.6 L Monocytes % 11.5 H Eosinophils % 3.2 Basophils % 0.2 Neutrophils # 5.9 Lymphocytes # 1.4 Monocytes # 1.0 H Eosinophils # 0.3 Basophils # 0.0 Sodium 139 Potassium 3.4 L Chloride 104 Carbon Dioxide 27 Anion Gap 11 BUN 4 L Creatinine 0.61 L Estimated GFR (MDRD) Greater than 90 Glucose 108 H POC Glucose 76 Calcium 9.3 Magnesium 2.0 Total Bilirubin 0.2 Direct Bilirubin 0.1 AST 9 ALT 8 Alkaline Phosphatase 79 Serum Total Protein 6.6 Albumin 2.6 L
--- NOTE | 2020-01-31 14:34 | MRI ---
Exam: Lumbar spine MRI with and without contrast HISTORY: Evaluate for epidural abscess. Pain. COMPARISON: 06/29/2018. CORRELATION: CT 01/30/2020. FINDINGS: There is abnormal T1 marrow signal intensity involving the right aspect of the sacrum, incompletely e valuated. The lumbar vertebra have appropriate T1 marrow signal intensity. No evidence of a pathologic fracture. There is T2 and STIR hyperintensity along the right aspect of the sacrum. There is appropriate signal intensity in the visualized paraspinal muscles. There is edema involving the right piriformis muscle, incompletely evaluated. There is a small amount of fluid in the presacral fat. There is evidence of fluid along the anterior and posterior aspect of the thecal sac a t the S1, S2 and S3 levels. Postcontrast images demonstrate enhancement. There is a probable posterior epidural fluid collection, measuring 2.2 cm in the craniocaudal dimension, best appreciated on the sagittal images. Postcontrast images also demonstrate abnormal enhancement along the presacral fat and along the right aspect of the sacrum. There is heterogeneous enhancement involving the presumed soft tissue mass in the right aspect of the sacrum and iliac bone, incompletely evaluated on this current exam. Conus medullaris does not appear to be low-lying. Postcontrast images do not demonstrate evidence of enhancement with regards to the nerve roots. T12-L1: Adequate disc hydration. No significant central canal stenosis or significant neural foramina l narrowing. L1-L2: Adequate disc hydration. No significant central canal stenosis or significant neural foraminal narrowing. L2-L3: Adequate disc hydration. Mild loss of disc space height. There is ligamentum flavum thickening and facet hypertrophy. No significant central canal stenosis. Mild bilateral neural foraminal narrowing. L3-L4: Mild loss of disc space height. Broad-based disc bulge, ligamentum flavum thickening and facet hypertrophy result in moderate to severe central canal stenosis. Moderate bilateral neural foraminal narrowing. L4-L5: Adequate disc hydration. No significant loss of disc space height. Broad-based disc bulge, lig amentum flavum thickening and facet hypertrophy result in severe central canal stenosis. There is fluid in bilateral facet joints. Moderate bilateral neural foraminal narrowing. L5-S1: Adequate disc hydration. Broad-based disc bulge, ligamentum flavum thickening and facet hypert rophy result in moderate to severe central canal stenosis. There is fluid in both facet joints. Moderate bilateral neural foraminal narrowing. IMPRESSION: 1. Multilevel degenerative changes of the lumbar spine as above. 2. Abnormal enhancement along the anterior and posterior epidural space at the level of the sacrum. T here is also abnormal enhancement along the presacral fat. Possibility of an epidural and paraspinal infectious/inflammatory process should be considered. Note, there is a soft tissue space-o ccupying mass involving the right aspect of the sacrum, worrisome for malignancy/metastases. Enhancement along the anterior and posterior epidural space may also in part be due to extension of t umor. CT-guided biopsy is recommended to differentiate between tumor versus infection. Results of study discussed with Dr. Mcconnell. 01/31/2020 at 2:33 PM Code CR Transcribed Date/Time: 01/31/2020 2:40 PM
--- NOTE | 2020-01-31 15:00 | MRI ---
Exam: Pelvic MRI with and without contrast HISTORY: Evaluate for epidural abscess. COMPARISON: None. FINDINGS: There is abnormal T1 marrow signal intensity involving the right aspect of the S1, S2, S3 and S4 vert ebral bodies. There is abnormal signal intensity involving the right aspect of the ischium. T2-weighted images demonstrate associated hyperintensity. There also appears to be abnormal hyperinte nsity involving the right gluteal muscles as well as the right piriformis muscle. There is T2 hyperintensity with peripheral enhancement involving the right piriformis muscle suggesting intramusc ular abscesses. Postcontrast images demonstrate mild anterior and posterior epidural enhancement along the sacrum and presacral fat. There is abnormal heterogeneous enhancement involving the right a spect of the ischium and sacrum. There is obliteration of the right S1, S2 nerve roots secondary to abnormal signal intensity, worrisome for neoplasm until proven otherwise. There are incompletely evaluated but previously identified multiple gluteal soft tissue abscesses as well as fistulous connections between the septations fat and the overlying dermis. There is inflammatory change of the dermis. The right piriformis muscle abscess measures approximately 3.2 x 2.6 cm. There does appear to be a sm all abscess posterior to the right aspect of the S2 vertebral body, measuring 1.7 cm. IMPRESSION: 1. Evidence of subcutaneous and soft tissue abscess is as described above. 2. Abnormal signal intensity involving the right aspect of the sacrum and ischium. Component of infla mmation may be present. However, given the obliteration of neural foramina and the overall soft tissue appearance on recent CT, a compounding neoplastic process/mass is suspected. Consider further evaluation with CT-guided biopsy. Findings discussed with Dr. Mcconnell on 01/31/2020 at the time of this dictation Code CR Transcribed Date/Time: 01/31/2020 4:12 PM
--- NOTE | 2020-01-31 15:50 | MRI ---
MRI THORACIC SPINE WITH AND WITHOUT CONTRAST: 01/31/20 INDICATIONS: Back pain. Assess for epidural abscess. Thoracic vertebrae maintain normal height and alignment and exhibit normal signal. Disc spaces are pr eserved. There is evidence of degenerative disc change with disc protrusion and spondylosis at the C7-T1 level which appears to produce cord compression. This is not adequately evaluated on this study. No signif icant disc bulge or protrusion in the thoracic spine. Thoracic cord signal appears normally maintaine d. There is no evidence of epidural fluid or abscess collection. No abnormal enhancement identified. IMPRESSION: 1. Unremarkable MRI of thoracic spine. 2. Multilevel degenerative disc changes in the cervical spine which is confirmed on recent CT of neck, 01/30/20 which did confirm cord compression and central canal stenosis in the cervical spine. POS: AGW
--- NOTE | 2020-01-31 17:01 | PDOC.HOSPP ---
- Subjective Encounter Date: 01/31/20 Subjective: Seen and examined at bedside this morning. Denies any significant overnight events. Remains with significant sacral/pelvic pain mainly exacerbated by position/movement. Denies any fever or chills. He has a history of chronic abscess to buttocks area dating many years back. Currently being evaluated for abscess, osteomyelitis and possible metastatic lesion to pelvis. Did undergo MRI of the spine which shows a soft tissue space occupying mass involving the right sacrum concerning for malignancy. There is also some abnormal enhancement of the presacral fat with concerns for para spinal infectious or inflammatory process including extension of possible tumor. Planning for CT guided biopsy in 24 hrs. Surgery and neurosugery follows. - Objective Vital Signs & Weight: Vital Signs (12 hours) Temp Pulse Resp BP Pulse Ox 01/31/20 12:19 97.4 F L 78 12 153/94 H 99 01/31/20 08:40 98 01/31/20 08:36 97.7 F 78 16 120/77 98 Weight Admit Weight 229 lb 1 oz Weight 229 lb 1 oz I&O: 01/30/20 01/31/20 02/01/20 06:59 06:59 06:59 Intake Total 1320 1680 Output Total 1300 1700 Balance 20 -20 Result Diagrams: 01/31/20 05:13 01/31/20 05:13 Additional Labs: Accuchecks 01/31/20 01/31/20 16:14 11:22 POC Glucose 100 76 Radiology Reviewed by me: Yes Hospitalist ROS - Review of Systems Constitutional: denies: fever, chills, sweats, weakness, malaise, other Respiratory: denies: cough, dry, shortness of breath, hemoptysis, SOB with excertion, pleuritic pain, sputum, wheezing, other Cardiovascular: denies: chest pain, palpitations, orthopnea, paroxysmal noc. dyspnea, edema, light headedness, other Gastrointestinal: denies: nausea, vomiting, abdominal pain, diarrhea, constipation, melena, hematochezia, other Genitourinary: denies: dysuria, frequency, incontinence, hematuria, retention, other Musculoskeletal: reports: back pain, leg pain Skin: reports: rash, lesions Neurological: denies: weakness, numbness, incoordination, change in speech, confusion, seizures, other - Medication Medications: Active Medications Generic Name Dose Route Start Last Admin Trade Name Freq PRN Reason Stop Dose Admin Hydrocodone Bitart/Acetaminophen 2 tab 01/30/20 09:24 01/31/20 15:01 Hydrocodone/Acetaminophen 5/325 Mg Tablet PO 2 tab Q4H PRN Administration Severe Pain (7-10) Famotidine 20 mg 01/30/20 09:00 01/31/20 09:19 Famotidine 20 Mg Tab PO 20 mg BID JARRET Administration Heparin Sodium (Porcine) 5,000 units 01/30/20 09:00 01/31/20 09:19 Heparin 5,000 Units/Ml Vial SC 5,000 units BID JARRET Administration Vancomycin HCl 1.25 gm/ Sodium 250 mls @ 166.667 mls/hr 01/30/20 23:59 01/31/20 09:19 Chloride IVPB 250 mls 0800,1600,2359 JARRET Administration Morphine Sulfate 4 mg 01/30/20 09:24 01/31/20 09:48 Morphine 4 Mg/Ml Vial SLOW IVP 4 mg Q4H PRN Administration Breakthrough Pain Morphine Sulfate 6 mg 01/31/20 11:54 01/31/20 12:05 Morphine 4 Mg/Ml Vial SLOW IVP 01/31/20 23:59 6 mg WILLCALL PRN Administration 30 MINUTES BEFORE MRI Polyethylene Glycol 17 gm 01/30/20 09:00 01/31/20 09:19 Polyethylene Glycol 3350 17 Gm Packet PO 17 gm DAILY JARRET Administration Sodium Chloride 10 ml 01/31/20 09:00 01/31/20 09:53 Flush - Normal Saline 10 Ml Syringe IVF 10 ml Q12HR JARRET Administration - Exam General Appearance: NAD, awake alert Heart: RRR, no murmur, no gallops, no rubs, normal peripheral pulses Respiratory: CTAB, no wheezes, no rales, no ronchi, normal chest expansion, no tachypnea, normal percussion Gastrointestinal: soft, non-tender, non-distended, normal bowel sounds, no palpable masses, no hepatomegaly, no splenomegaly, no bruit Skin - other findings: Chronic wounds with tunneling to gluteal area Neurological: cranial nerve grossly intact, normal sensation to touch, no weakness, no focal deficits, no new deficit Hosp A/P - Plan old records reviewed/req A/P: Back pain with evidence of chronic wounds to gluteal area. Imaging suggestive of possible abscess with fluid collection as well as destructive lesion to pelvis. # Back pain: Back/right gluteal/pelvic/sacral pain appears to be multifactorial and related to chronic pelvic abscesses as well as possible desctructive lesion to pelvic bone. CT with contrast of chest/abd/pelvis did not reveal other concerning lesions. MRI with abnormal enhacing of paraspinal area as well as possible tumur as similarly described on CT scan. CT guided biopsy has been scheduled for 02-01-20. Surgery and neurosurgery teams follow. Continue with current course of antibiotics. Will await further input from multidisciplinary team. 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 During exam patient does not appear septic. Will continue current antibiotic regimen. Pending further work up will consider ID consultation for further recommendations at time of discharge. # Destructive bone lesion: CT C/A/P w contrast without evidence of other lesions. Pelvic structure amenable for CT guided biopsy which is scheduled for 02-01-20. Will await further input by surgery & neurosurgery. # HTN: Continue with current medication regimen. # DM: Continue with current medication regimen. DISPOSITION: Multiple issues including chronic abscesses to pelvic region and destructive structure to bone. Possible CT guided biopsy in AM. Consideration for transfer to other facility for higher level of care if surgery intervention of the area is necessary. Will consider ID input once next step from surgical stand point is better defined.
[2020-01-31 23:53] LABS: Vancomycin, Trough 16.7 ug/mL
[2020-02-01] MEDS: Vancomycin HCl 1.25 GM in Sodium Chloride 0.9% 250 ML 250 ML IVPB SCH ×4 (00:58→23:18)
[2020-02-01] MEDS: HYDROcodone/Acetaminophen 5/325 mg Tablet PO PRN ×5 (00:59→20:27)
[2020-02-01] MEDS: Ampicillin/Sulbactam 3 GM in Sodium Chloride 0.9% 100 ML IVPB SCH ×4 (03:57→20:26)
[2020-02-01] MEDS: Morphine 4 MG/ML VIAL SLOW IVP PRN ×2 (03:58→22:33)
[2020-02-01 06:27] LABS: INR-International Normal Ratio 1.1; PTT 41.7 sec (22.9-36.1)
[2020-02-01 06:41] LABS: Anion Gap 12 mmol/L (10-20); BUN (Urea Nitrogen) 5 mg/dL (8.4-25.7); Calc. Creatinine Clearance 205 mL/min (70-130); Calcium 9.8 mg/dL (7.8-10.44); Carbon Dioxide 27 mmol/L (22-29); Chloride 104 mmol/L (98-107); Glucose 88 mg/dL (70-105); Sodium 139 mmol/L (136-145)
[2020-02-01 07:15] LABS: #Eosinphils 0.2 thou/uL (0.0-0.7); #Lymphocytes 1.6 thou/uL (1.20-3.40); #Monocytes 0.9 thou/uL (0.11-0.59); #Neutrophils 4.8 thou/uL (1.40-6.50); %Basophils 0.4 % (0.0-1.0); %Eosinophils 3.3 % (0.0-10.0); %Lymphocytes 20.7 % (21.0-51.0); %Monocytes 11.7 % (0.0-10.0); %Neutrophils 63.9 % (42.0-75.0); Hemoglobin 8.6 g/dL (14.0-18.0); Mean Corpuscular HGB CONC 29.9 g/dL (32.0-36.0); Mean Corpuscular Hemoglobin 23.1 pg (27.0-31.0); Mean Corpuscular Volume 77.4 fL (78.0-98.0); Mean Platelet Volume 8.5 fL (7.4-10.4); Platelet Count 504 thou/uL (130-400); RBC Distribution Width 16.8 % (11.5-14.5); Red Blood Cell (RBC) Count 3.73 mill/uL (4.70-6.10); White Blood Cell (WBC) Count 7.5 thou/uL (4.8-10.8)
[2020-02-01] MEDS ORDERED: Magnesium 2 GM/50 ML 2 GM in Premix Bag 1 BAG IVPB SCH (07:30)
--- NOTE | 2020-02-01 07:51 | PRG ---
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 His MRI scan was done yesterday. The findings are interesting. Mr. Camejo complains that he still has some numbness in his feet. His left foot is actually more affected than his right foot with his numbness suggesting a peripheral neuropathy rather than compressive phenomenon. Mr. Camejo has remained afebrile since yesterday. Blood pressure has been 110s to 130s. On examination, there is mild weakness of toe flexion greater than EHL on both the left and the right. There is presence of sensation, although it is altered in a stocking distribution in the feet. MRI is interesting and that there is multiple areas of subcutaneous and muscular abscesses. There is inflammation and I believe the inflammation is contiguous all the way to the lesion in the bone suggesting osteomyelitis. There is a small possibility of a lytic tumorous lesion and for that reason, a CT-guided aspirate was recommended. He has been on antibiotic therapy. So, the culture may be negative, but the presence of significant amount of inflammatory tissue rather than neoplastic cells was suggestive this is abscess and osteomyelitis. This likely he will benefit from 6 to 12 weeks of IV antibiotic therapy through PICC line. I think it is less likely that we will be considering a transfer for sacral tumor surgery. Job ID: [id number]
--- NOTE | 2020-02-01 08:08 | PDOC.HOSPP ---
- Subjective Encounter Date: 02/01/20 Subjective: Seen and examined this morning at bedside s/p CT guided biopsy; results pending. Denies any significant overnight events. Denies any fever or chills. He has a history of chronic abscess to buttocks area dating many years back (about 2 decades). Currently being evaluated for abscess, osteomyelitis and possible metastatic lesion to pelvis. Surgery and neurosugery follows. ID has been consulted for antibiotic guidance in this complex case. - Objective Vital Signs & Weight: Vital Signs (12 hours) Temp Pulse Resp BP Pulse Ox 02/01/20 04:42 97.7 F 74 20 117/86 96 02/01/20 00:56 97.8 F 85 16 118/76 99 Weight Admit Weight 229 lb 1 oz Weight 229 lb 1 oz I&O: 01/31/20 02/01/20 02/02/20 06:59 06:59 06:59 Intake Total 1320 3020 1680 Output Total 1300 3730 1150 Balance 20 -710 530 Result Diagrams: 02/01/20 05:41 02/01/20 05:41 Additional Labs: Accuchecks 02/01/20 01/31/20 01/31/20 05:24 21:19 16:14 POC Glucose 78 112 H 100 01/31/20 11:22 POC Glucose 76 Hospitalist ROS - Review of Systems Constitutional: denies: fever, chills, sweats, weakness, malaise, other Respiratory: denies: cough, dry, shortness of breath, hemoptysis, SOB with excertion, pleuritic pain, sputum, wheezing, other Cardiovascular: denies: chest pain, palpitations, orthopnea, paroxysmal noc. dyspnea, edema, light headedness, other Gastrointestinal: denies: nausea, vomiting, abdominal pain, diarrhea, constipation, melena, hematochezia, other Musculoskeletal: reports: other (Back pain/gluteal pain) - Medication Medications: Active Medications Generic Name Dose Route Start Last Admin Trade Name Freq PRN Reason Stop Dose Admin Hydrocodone Bitart/Acetaminophen 2 tab 01/30/20 09:24 02/01/20 06:06 Hydrocodone/Acetaminophen 5/325 Mg Tablet PO 2 tab Q4H PRN Administration Severe Pain (7-10) Famotidine 20 mg 01/30/20 09:00 01/31/20 20:02 Famotidine 20 Mg Tab PO 20 mg BID JARRET Administration Heparin Sodium (Porcine) 5,000 units 01/30/20 09:00 01/31/20 20:02 Heparin 5,000 Units/Ml Vial SC 5,000 units BID JARRET Administration Vancomycin HCl 1.25 gm/ Sodium 250 mls @ 166.667 mls/hr 01/30/20 23:59 02/01/20 00:58 Chloride IVPB 250 mls 0800,1600,2359 JARRET Administration Ampicillin Sodium/Sulbactam 100 mls @ 200 mls/hr 01/31/20 21:00 02/01/20 03:57 Sodium 3 gm/ Sodium Chloride IVPB 100 mls 0300,0900,1500,2100 JARRET Administration Morphine Sulfate 4 mg 01/30/20 09:24 02/01/20 03:58 Morphine 4 Mg/Ml Vial SLOW IVP 4 mg Q4H PRN Administration Breakthrough Pain Polyethylene Glycol 17 gm 01/30/20 09:00 01/31/20 09:19 Polyethylene Glycol 3350 17 Gm Packet PO 17 gm DAILY JARRET Administration Sodium Chloride 10 ml 01/31/20 09:00 01/31/20 20:03 Flush - Normal Saline 10 Ml Syringe IVF 10 ml Q12HR JARRET Administration - Exam General Appearance: NAD, awake alert Heart: RRR, no murmur, no gallops, no rubs, normal peripheral pulses Respiratory: CTAB, no wheezes, no rales, no ronchi, normal chest expansion, no tachypnea, normal percussion Gastrointestinal: soft, non-tender, non-distended, normal bowel sounds, no palpable masses, no hepatomegaly, no splenomegaly, no bruit Skin - other findings: Abscess to gluteal area Hosp A/P - Plan A/P: Back pain with evidence of chronic wounds to gluteal area. Imaging suggestive of possible abscess with fluid collection as well as destructive lesion to pelvis. # Back pain: Back/right gluteal/pelvic/sacral pain appears to be multifactorial and related to chronic pelvic abscesses as well as possible destructive lesion to pelvic bone. CT with contrast of chest/abd/pelvis did not reveal other concerning lesions. MRI with abnormal enhacing of paraspinal area as well as possible tumur as similarly described on CT scan. CT guided biopsy performed on 02-01-20; awaiting results. ID service has been consulted for antibiotic guidance. Surgery and neurosurgery teams follow. Continue with current course of antibiotics. Will await further input from multidisciplinary team. # Chronic gluteal abscess: During exam patient does not appear septic. Will continue current antibiotic regimen. Surgery deciding if patient will be taken for I&D of gluteal abscess and diverting colostomy. If more pelvic surgery is necessary then he will be transfer to different facility for higher level of care. ID service has been consulted. # Destructive bone lesion: CT C/A/P w contrast without evidence of other lesions. CT guided biopsy performed on 02-01-20; awaiting results. # HTN: Continue with current medication regimen. # DM: Continue with current medication regimen. DISPOSITION: Awaiting CT guided biopsy results. ID has been consulted. Consideration for transfer to other facility for higher level of care if more complex pelvic surgery intervention is necessary.
[2020-02-01] MEDS ORDERED: Sodium Bicarbonate 2.5 MEQ/5 ML VIAL ONE (08:13)
[2020-02-01] MEDS ORDERED: Fentanyl 100 MCG/2 ML VIAL ONE (08:13)
[2020-02-01] MEDS ORDERED: Midazolam HCl 2 mg/2 ml Vial ONE (08:13)
[2020-02-01 09:39] LABS: Hypochromia SLIGHT = 6-15 cells (100X) (0-5/hpf); MDiff Complete? YES; Microcytosis SLIGHT = 6-15 cells (100X) (0-5/hpf); Platelet Morphology Comment Appears Increased; Polychromasia SLIGHT = 2-3 cells (100X) (0-2/hpf)
[2020-02-01] MEDS: Heparin 5,000 UNITS/ML VIAL SC SCH ×2 (09:43→20:25)
[2020-02-01] MEDS: Polyethylene Glycol 3350 17 GM Packet PO SCH (09:44)
[2020-02-01] MEDS: Famotidine 20 MG TAB PO SCH ×2 (09:44→20:26)
--- NOTE | 2020-02-01 10:48 | PDOC.GSPN ---
Surgery Progress Note: Subj - Subjective Narrative: Patient just underwent a CT-guided biopsy of the sacral lesion. I examined him with the wound care team. His gluteal abscesses and wound are unchanged. If the sacral lesion is malignant he will require transfer to a higher level of care. If this is infectious, then we will need to determine whether it can be treated with antibiotics alone or if surgical debridement is necessary. If surgical debridement is necessary that he would require transfer to a higher level of care. Infectious disease has been consulted. If antibiotics alone are adequate for the management of the sacral lesion, then I will plan to take the patient to the operating room for drainage, debridement and biopsy of his gluteal abscesses, and diverting laparoscopic colostomy. He is tentatively on the OR schedule for Thursday pending pathology results and infectious disease input. I had a long discussion with the patient regarding all these issues and he seems to understand the situation, which is unfortunately quite complex and with few good options. 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 He expresses understanding is in agreement with the plan. All of his questions were answered. Surgery Progress Note: Obj - Vital signs Vital signs: Vital Signs - Most Recent Temp Pulse Resp BP Pulse Ox 98.7 F 74 18 123/74 96 02/01/20 07:26 02/01/20 07:26 02/01/20 07:26 02/01/20 07:26 02/01/20 07:26 Surgery Progress Note: Results - Labs Result Diagrams: 02/01/20 05:41 02/01/20 05:41 Lab results: Laboratory Results - last 12 hr 01/31/20 02/01/20 02/01/20 23:16 05:24 05:41 WBC RBC Hgb Hct MCV MCH MCHC RDW Plt Count MPV Neutrophils % Neutrophils % (Manual) Lymphocytes % Monocytes % Eosinophils % Basophils % Neutrophils # Lymphocytes # Monocytes # Eosinophils # Basophils # Hypochromia Plt Morphology Comment Polychromasia Microcytosis ESR Westergren PT INR APTT Sodium 139 Potassium 4.0 Chloride 104 Carbon Dioxide 27 Anion Gap 12 BUN 5 L Creatinine 0.62 L Estimated GFR (MDRD) Greater than 90 Glucose 88 POC Glucose 78 Calcium 9.8 Magnesium 2.0 C-Reactive Protein Vancomycin Trough 16.7 02/01/20 02/01/20 02/01/20 05:41 05:41 09:26 WBC 7.5 RBC 3.73 L Hgb 8.6 L Hct 28.9 L MCV 77.4 L MCH 23.1 L MCHC 29.9 L RDW 16.8 H Plt Count 504 H MPV 8.5 Neutrophils % 63.9 Neutrophils % (Manual) Not Reportable Lymphocytes % 20.7 L Monocytes % 11.7 H Eosinophils % 3.3 Basophils % 0.4 Neutrophils # 4.8 Lymphocytes # 1.6 Monocytes # 0.9 H Eosinophils # 0.2 Basophils # 0.0 Hypochromia SLIGHT = 6-15 cells Plt Morphology Comment Appears Increased H Polychromasia SLIGHT = 2-3 cells Microcytosis SLIGHT = 6-15 cells ESR Westergren PT 14.0 INR 1.1 APTT 41.7 H Sodium Potassium Chloride Carbon Dioxide Anion Gap BUN Creatinine Estimated GFR (MDRD) Glucose POC Glucose Calcium Magnesium C-Reactive Protein 17.00 H Vancomycin Trough 02/01/20 09:26 WBC RBC Hgb Hct MCV MCH MCHC RDW Plt Count MPV Neutrophils % Neutrophils % (Manual) Lymphocytes % Monocytes % Eosinophils % Basophils % Neutrophils # Lymphocytes # Monocytes # Eosinophils # Basophils # Hypochromia Plt Morphology Comment Polychromasia Microcytosis ESR Westergren Greater than 130 H PT INR APTT Sodium Potassium Chloride Carbon Dioxide Anion Gap BUN Creatinine Estimated GFR (MDRD) Glucose POC Glucose Calcium Magnesium C-Reactive Protein Vancomycin Trough
--- NOTE | 2020-02-01 18:50 | CT ---
CT-guided sacral mass biopsy Conscious sedation: At least 30 minutes spent with the patient for conscious sedation. HISTORY: Sacral mass. FINDINGS: After explaining the procedure and answering all questions, limited CT imaging of the pelvi s was performed with patient prone. Sterile technique, buffered local anesthesia, CT guidance, conscious sedation, and a posterior approa ch were used to carefully advance the tip of a 17-gauge trocar needle to the posterior margin of the destructive right sacral mass. When stylette was removed, a small amount of purulent liquid was s een. A total of 8 cc purulent liquid was collected and submitted to Dr. Palacio from pathology for processing. An 18-gauge core specimen was obtained, revealing only necrotic tissue per Dr. Palacio. Needle was re positioned to obtain additional samples from the medial and lateral margins of the mass. Tissue submitted to Dr. Palacio. Needle was removed. Patient tolerated the procedure well and was returned in unchanged condition. IMPRESSION : Technically successful CT-guided aspiration/biopsy right sacral mass.. Purulent liquid and solid mate rial were obtained. Pathology is pending.
[2020-02-01 20:08] LABS: HIV (1/2) Antibody/Antigen Non-Reactive (NonReactive); HIV 1/2 INDEX 0.11 S/CO (<1.00)
--- NOTE | 2020-02-01 20:26 | CON ---
DATE OF CONSULTATION: 02/01/2020 REASON FOR CONSULTATION: Perianal abscesses and sacral lesion. HISTORY OF PRESENT ILLNESS: A 54-year-old, who has been in to the emergency room mostly in the past few years. He has had chronic back pain and has had issues related to chronic draining sinuses in the perianal area and gluteal regions. As per his own recollection, he started to have those draining sinuses in the gluteal areas. He also has lesions consistent with hidradenitis suppurativa in the bilateral axillary areas and apparently has had previous surgical interventions by Dr. Mercedes. Then, he had this chronic back pain in the sacral area, which has been there since 2017 at least. He has been to the emergency room multiple times and released with symptomatic medication. He had a lumbar spine MRI done in June 2018, which demonstrated multilevel degenerative disk disease, but nothing else. There is a lumbar spine x-ray from June 2018 as well with multilevel degenerative disease, and then over the past 2 weeks, he noticed progressively worsening weakness in the lower extremities to the point that he had to use a walker for mobility and he also noticed worsening drainage from the fistulous openings and abscesses in the gluteal region, so he was admitted. The admission date was January 30, 2020. In addition to that, he has a history of hypertension, type 2 diabetes. His initial findings included a BP of 140/90, pulse 107, respirations 17, temperature 99.2, and O2 saturation 100%. He did not appear in distress and he had those lesions in the back area, in the gluteal region, both right and left side, more prominent on the right side with deep ulcerations. In the left side, there are nodular lesions, more typical of hidradenitis. Both axillae with scar tissue and nodularity from hydradenitis suppurative as well. Initial findings included a white cell count of 11.9, hemoglobin 8.7, MCV 77, platelets 572, with 28% bands. INR 1.1. Creatinine 0.62. Liver profile normal. Albumin 3.0. SARS-CoV PCR not detected. There is a culture from the area on the left gluteal region with Klebsiella pneumoniae with zuniga susceptibility. Imaging studies included a pelvis MRI, which demonstrated subcutaneous soft tissue abscess and abnormal signal intensity in the right aspect of the sacrum and ischium, obliteration of neural foramina and overall soft tissue appearance suggestive of neoplastic mass. Thoracic spine MRI did not show any abnormalities other than degenerative joint disease. Lumbar spine MRI demonstrated multilevel degenerative disease, enhancement along the anterior and posterior epidural space at the level of the sacrum and presacral fat. Currently, Mr. Camejo is eating his dinner in a prone position because of his gluteal ulcers. He does not appear in distress. He denies any headaches. No visual symptoms, sore throat, odynophagia, or dysphagia. No cough, sputum production, or chest pain. No abdominal pain. No vomiting. No diarrhea or bleeding from the rectal area. Moderate pain in the gluteal region, which is chronic, back pain as well. Chronic lesions in the axillary area, consistent with hidradenitis. PAST MEDICAL HISTORY: Includes type 2 diabetes, hypertension, GERD, chronic low back pain, hydradenitis suppurative in axillary and gluteal region. ALLERGY HISTORY: Negative. 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 He used to smoke, but quit. Drinks occasionally. Lives with his sister in [place] in the family house. FAMILY HISTORY: Noncontributory. CURRENT MEDICATIONS: 1. Inhaler. 2. Unasyn. 3. Hydralazine. 4. Hydrocodone. 5. Labetalol. 6. Morphine. 7. Promethazine. 8. Vancomycin. PHYSICAL EXAMINATION: VITAL SIGNS: Temperature has been normal, T-max 99.1. BP 140/89, heart rate 91, respiratory rate 16, O2 saturation 98 on room air. SKIN: Shows the large area of ulceration in the right gluteal region. In the left side, he has more of the typical hidradenitis types of nodules and fistulous openings in the medial aspect of the gluteal area, perianal region, and groins. Axillary area with chronic scar tissue and nodularity consistent with hidradenitis suppurativa. He has a peripheral IV access. He is voiding in the urinal. No lymphadenopathy. HEENT: Ocular movements are conjugate. Oral cavity with a few missing teeth. NECK: Supple. LUNGS: Symmetric, clear breath sounds. BACK: There is evidence of acne conglobata in the back area. ABDOMEN: Soft. Not distended or tender. No ascites. No bladder distention. EXTREMITIES: He is able to move extremities, but he has weakness in lower extremities, particularly on the right side. Plantar responses are flexor. Pulses 1+ in dorsalis pedis. NEUROLOGIC: Cognitive function appears to be intact. LABORATORY DATA: The latest labs, white cell count 7.5, hemoglobin 8.6, platelets 504, with 63% neutrophils. Sodium 139, creatinine 0.62, calcium 9.8. CRP 17, albumin 2.6. AST was normal, ALT was normal, and alkaline phosphatase was normal as well. ASSESSMENT: 1. Chronic hidradenitis suppurativa in axillary and perianal area, gluteal region, associated with acne conglobata. 2. Chronic draining sinuses in the gluteal area, which probably correspond to hidradenitis suppurativa. Chronic back pain, now with worsening back pain with the sacral lesions noted. 3. Mass lesion around the sacrum with invasion of the sacral bone and coccyx as well as epidural space versus infection. DISCUSSION: The differential diagnosis includes a Marjolin ulcer, which is a neoplastic transformation of hidradenitis suppurativa lesions, typically affecting the axial skeleton or abdominopelvic viscera. Sometimes, metastatic disease can be found elsewhere from those lesions. The other possibility would be bacterial osteomyelitis associated with hidradenitis suppurativa. I tend to favor the hypothesis of neoplastic transformation of pelvic Marjolin ulcer arising from hidradenitis suppurativa. The management of this would be quite complex, requiring surgical resection and probably radiation therapy, and he may have to be transferred to [facility] or tertiary center for this sort of intervention. The hypothesis of perirectal abscess draining into the gluteal area is less tenable. For completeness sake, we will add HIV serology and hepatitis C, but that is not likely to be the case in this situation. Job ID: [id number]
[2020-02-01 23:51] LABS: Vancomycin, Trough 19.1 ug/mL
[2020-02-02] MEDS: HYDROcodone/Acetaminophen 5/325 mg Tablet PO PRN ×6 (00:21→22:49)
[2020-02-02] MEDS: Morphine 4 MG/ML VIAL SLOW IVP PRN ×2 (02:13→20:33)
[2020-02-02] MEDS: Ampicillin/Sulbactam 3 GM in Sodium Chloride 0.9% 100 ML IVPB SCH ×4 (02:14→20:35)
[2020-02-02 05:50] LABS: #Eosinphils 0.2 thou/uL (0.0-0.7); #Lymphocytes 1.3 thou/uL (1.20-3.40); #Monocytes 0.9 thou/uL (0.11-0.59); #Neutrophils 5.8 thou/uL (1.40-6.50); %Basophils 0.4 % (0.0-1.0); %Eosinophils 2.6 % (0.0-10.0); %Lymphocytes 15.6 % (21.0-51.0); %Monocytes 10.4 % (0.0-10.0); Hemoglobin 8.4 g/dL (14.0-18.0); Mean Corpuscular HGB CONC 30.9 g/dL (32.0-36.0); Mean Corpuscular Hemoglobin 23.7 pg (27.0-31.0); Mean Corpuscular Volume 76.6 fL (78.0-98.0); Mean Platelet Volume 7.6 fL (7.4-10.4); Platelet Count 503 thou/uL (130-400); RBC Distribution Width 16.6 % (11.5-14.5); Red Blood Cell (RBC) Count 3.53 mill/uL (4.70-6.10); White Blood Cell (WBC) Count 8.2 thou/uL (4.8-10.8)
[2020-02-02 06:20] LABS: Anion Gap 12 mmol/L (10-20); BUN (Urea Nitrogen) 6 mg/dL (8.4-25.7); Calc. Creatinine Clearance 195 mL/min (70-130); Calcium 9.8 mg/dL (7.8-10.44); Carbon Dioxide 26 mmol/L (22-29); Chloride 104 mmol/L (98-107); Glucose 101 mg/dL (70-105); Potassium 3.5 mmol/L (3.5-5.1); Sodium 138 mmol/L (136-145)
--- NOTE | 2020-02-02 07:12 | PRG ---
DATE OF SERVICE: 02/02/2020 I saw Mr. Camejo in our hospital room this morning. We talked briefly about his CT-guided aspirate yesterday. He has had no neurological changes. We will await the biopsy results. If tumor is proven and he need the surgical intervention, then a multidisciplinary pelvic surgery, neurosurgery, and orthopedic surgery team could be assembled in an institution and cares for sacral tumors. On the other hand, if always sees infection, then IV antibiotics will be the treatment. I will recommend neurosurgical intervention. Please call with questions. Job ID: [id number] [facility]
[2020-02-02] MEDS ORDERED: Potassium Chloride 20 MEQ TAB PO SCH (07:30)
--- NOTE | 2020-02-02 08:12 | PDOC.HOSPP ---
- Subjective Encounter Date: 02/02/20 Subjective: Seen and examined at bedside. Denies any overnight events. Remains on broad spectrum ABX for coverage of Klebsiella sp and MRSA from wound culture. Per latest conversation patient may need deep pelvic I&D for possible pelvic abscess/osteo. If such intervention is necessary patient will likely need transfer to different facility for higher level of care. - Objective Vital Signs & Weight: Vital Signs (12 hours) Temp Pulse Resp BP BP Pulse Ox 02/02/20 07:43 98.2 F 84 18 130/78 99 02/02/20 04:31 97.5 F L 84 18 123/75 95 02/01/20 23:11 98.6 F 85 20 123/65 98 02/01/20 21:17 98.2 F 89 20 145/91 H 98 Weight Admit Weight 229 lb 1 oz Weight 229 lb 1 oz I&O: 02/01/20 02/02/20 02/03/20 06:59 06:59 06:59 Intake Total 3020 4772 Output Total 3730 3580 Balance -710 1192 Result Diagrams: 02/02/20 05:33 02/02/20 05:33 Additional Labs: Accuchecks 02/02/20 02/01/20 02/01/20 05:30 22:24 15:10 POC Glucose 95 102 H 118 H 02/01/20 11:17 POC Glucose 99 Hospitalist ROS - Review of Systems Constitutional: denies: fever, chills, sweats, weakness, malaise, other Respiratory: denies: cough, dry, shortness of breath, hemoptysis, SOB with excertion, pleuritic pain, sputum, wheezing, other Cardiovascular: denies: chest pain, palpitations, orthopnea, paroxysmal noc. dyspnea, edema, light headedness, other Gastrointestinal: denies: nausea, vomiting, abdominal pain, diarrhea, constipation, melena, hematochezia, other Musculoskeletal: reports: back pain, leg pain Skin: reports: rash, lesions - Medication Medications: Active Medications Generic Name Dose Route Start Last Admin Trade Name Freq PRN Reason Stop Dose Admin Hydrocodone Bitart/Acetaminophen 2 tab 01/30/20 09:24 02/02/20 04:20 Hydrocodone/Acetaminophen 5/325 Mg Tablet PO 2 tab Q4H PRN Administration Severe Pain (7-10) Famotidine 20 mg 01/30/20 09:00 02/01/20 20:26 Famotidine 20 Mg Tab PO 20 mg BID JARRET Administration Heparin Sodium (Porcine) 5,000 units 01/30/20 09:00 02/01/20 20:25 Heparin 5,000 Units/Ml Vial SC 5,000 units BID JARRET Administration Vancomycin HCl 1.25 gm/ Sodium 250 mls @ 166.667 mls/hr 01/30/20 23:59 02/01/20 23:18 Chloride IVPB 250 mls 0800,1600,2359 JARRET Administration Ampicillin Sodium/Sulbactam 100 mls @ 200 mls/hr 01/31/20 21:00 02/02/20 02: 14 Sodium 3 gm/ Sodium Chloride IVPB 100 mls 0300,0900,1500,2100 JARRET Administration Morphine Sulfate 4 mg 01/30/20 09:24 02/02/20 02:13 Morphine 4 Mg/Ml Vial SLOW IVP 4 mg Q4H PRN Administration Breakthrough Pain Polyethylene Glycol 17 gm 01/30/20 09:00 02/01/20 09:44 Polyethylene Glycol 3350 17 Gm Packet PO 17 gm DAILY JARRET Administration Sodium Chloride 10 ml 01/31/20 09:00 02/01/20 20:27 Flush - Normal Saline 10 Ml Syringe IVF 10 ml Q12HR JARRET Administration - Exam General Appearance: NAD, awake alert Eye: PERRL, anicteric sclera ENT: normocephalic atraumatic, no oropharyngeal lesions, moist mucosa Neck: supple, symmetric, no JVD, no thyromegaly, no lymphadenopathy, no carotid bruit Heart: RRR, no murmur, no gallops, no rubs, normal peripheral pulses Respiratory: CTAB, no wheezes, no rales, no ronchi, normal chest expansion, no tachypnea, normal percussion Gastrointestinal: soft, non-tender, non-distended, normal bowel sounds, no palpable masses, no hepatomegaly, no splenomegaly, no bruit Musculoskeletal: normal tone, normal strength, no muscle wasting Musculoskeletal - other findings: Chronic gluteal wound with tunneling Hosp A/P - Plan old records reviewed/req A/P: Back pain with evidence of chronic wounds to gluteal area. Imaging suggestive of possible abscess with fluid collection as well as destructive lesion to pelvis. # Back pain: Back/right gluteal/pelvic/sacral pain appears to be multifactorial and related to chronic pelvic abscesses as well as possible destructive lesion to pelvic bone. CT with contrast of chest/abd/pelvis did not reveal other concerning lesions. MRI with abnormal enhacing of paraspinal area as well as possible tumur as similarly described on CT scan. CT guided biopsy performed on 02-01-20 appears to be negative for malignant cells. ID service has been consulted for antibiotic guidance. Surgery and neurosurgery teams follow. Continue with current course of antibiotics. If patient does need pelvic surgery he will likely need transfer to different facility for complex pelvic surgery. # Chronic gluteal abscess: During exam patient does not appear septic. Will continue current antibiotic regimen. Surgery deciding if patient will be taken for I&D of gluteal abscess and diverting colostomy. If more pelvic surgery is necessary then he will be transfer to different facility for higher level of care. ID service has been consulted. Cultures growing Klebsiella sp & MRSA. # Destructive bone lesion: CT C/A/P w contrast without evidence of other lesions. CT guided biopsy performed on 02-01-20 appears to be negative for malignant cell but awaiting official results. # HTN: Continue with current medication regimen. # DM: Continue with current medication regimen. DISPOSITION: Consideration for transfer to other facility for higher level of care if more complex pelvic surgery intervention is necessary.
[2020-02-02] MEDS: Famotidine 20 MG TAB PO SCH ×2 (08:38→20:35)
[2020-02-02] MEDS: Heparin 5,000 UNITS/ML VIAL SC SCH ×2 (09:07→20:35)
[2020-02-02] MEDS: Polyethylene Glycol 3350 17 GM Packet PO SCH (09:07)
[2020-02-02] MEDS: Vancomycin HCl 1.25 GM in Sodium Chloride 0.9% 250 ML 250 ML IVPB SCH ×2 (11:12→17:37)
--- NOTE | 2020-02-02 14:13 | PDOC.GSPN ---
Surgery Progress Note: Subj - Subjective Narrative: Discussed pathology with Dr. Palacio. Biopsies of the sacral lesion showed epithelial cells with inflammatory changes but no malignancy. He states this could be fistulized or a pilonidal cyst or even a teratoma. Given the other ongoing inflammatory processes in his gluteal area however, I think the most likely explanation is that this is all interconnected. I think this area will require debridement with Dr. Rod has already recommended transfer if surge ry in this area is necessary. I reviewed the patient's imaging and discussed his case with my senior partners and none of us feel that this can be managed at our facility. We are currently trying to arrange transfer to a higher level of care. I discussed the findings and recommendations with the patient and with his sister and answered all their questions to the best of my ability. Signing off. Surgery Progress Note: Obj - Vital signs Vital signs: Vital Signs - Most Recent Temp Pulse Resp BP Pulse Ox 98.4 F 78 16 133/77 99 02/02/20 11:21 02/02/20 11:21 02/02/20 11:21 02/02/20 11:21 02/02/20 11:21 Surgery Progress Note: Results - Labs Result Diagrams: 02/02/20 05:33 02/02/20 05:33 Lab results: Laboratory Results - last 12 hr 02/02/20 02/02/20 02/02/20 05:30 05:33 05:33 WBC 8.2 RBC 3.53 L Hgb 8.4 L Hct 27.0 L MCV 76.6 L MCH 23.7 L MCHC 30.9 L RDW 16.6 H Plt Count 503 H MPV 7.6 Neutrophils % 71.0 Lymphocytes % 15.6 L Monocytes % 10.4 H Eosinophils % 2.6 Basophils % 0.4 Neutrophils # 5.8 Lymphocytes # 1.3 Monocytes # 0.9 H Eosinophils # 0.2 Basophils # 0.0 ESR Westergren Sodium 138 Potassium 3.5 Chloride 104 Carbon Dioxide 26 Anion Gap 12 BUN 6 L Creatinine 0.65 L Estimated GFR (MDRD) Greater than 90 Glucose 101 POC Glucose 95 Calcium 9.8 C-Reactive Protein 02/02/20 02/02/20 02/02/20 05:33 05:33 12:58 WBC RBC Hgb Hct MCV MCH MCHC RDW Plt Count MPV Neutrophils % Lymphocytes % Monocytes % Eosinophils % Basophils % Neutrophils # Lymphocytes # Monocytes # Eosinophils # Basophils # ESR Westergren Greater than 130 H Sodium Potassium Chloride Carbon Dioxide Anion Gap BUN Creatinine Estimated GFR (MDRD) Glucose POC Glucose 78 Calcium C-Reactive Protein 15.97 H
--- NOTE | 2020-02-02 15:26 | CT ---
CT-guided sacral mass biopsy Conscious sedation: At least 30 minutes spent with the patient for conscious sedation. HISTORY: Sacral mass. FINDINGS: After explaining the procedure and answering all questions, limited CT imaging of the pelvi s was performed with patient prone. Sterile technique, buffered local anesthesia, CT guidance, conscious sedation, and a posterior approa ch were used to carefully advance the tip of a 17-gauge trocar needle to the posterior margin of the destructive right sacral mass. When stylette was removed, a small amount of purulent liquid was s een. A total of 8 cc purulent liquid was collected and submitted to Dr. Palacio from pathology for processing. An 18-gauge core specimen was obtained, revealing only necrotic tissue per Dr. Palacio. Needle was re positioned to obtain additional samples from the medial and lateral margins of the mass. Tissue submitted to Dr. Palacio. Needle was removed. Patient tolerated the procedure well and was returned in unchanged condition. IMPRESSION : Technically successful CT-guided aspiration/biopsy right sacral mass.. Purulent liquid and solid mate rial were obtained. Pathology is pending. Transcribed Date/Time: 02/02/2020 3:26 PM
--- NOTE | 2020-02-02 19:18 | PRG ---
DATE OF SERVICE: 02/02/2020 SUBJECTIVE: Mr. Camejo is lying on his left lateral decubitus. He appears in no distress, still with a [id number] pain in the sacral area. No respiratory symptoms or abdominal pain. OBJECTIVE: VITAL SIGNS: He is afebrile. BP 140/84, heart rate 92, respirations 16, and O2 saturation 92% to 98%. GENERAL: Does not appear in distress. LUNGS: Clear. HEART: Regular rate. ABDOMEN: Soft. The skin lesions unchanged. LABORATORY DATA: White cell count 8.2, hemoglobin 8.4, platelets 503. Creatinine 0.65. CRP 15.97. Pathology report; both the fine-needle and the biopsy with inflamed squamous cells with associated necrosis. ASSESSMENT AND DISCUSSION: Hidradenitis suppurativa for more than 20 years now and this sacral mass lesion which is either inflammatory process or with infection or a malignant transformation. The biopsy may have not been diagnostic and maybe he will have to be re-sampled is in a different site to make sure he does not have malignancy, but if he does not, then we could treat this with antimicrobials and Humira, so he would need a PICC line, protracted antimicrobial administration plus Humira administration, so it would be a quite complex regimen to manage for him. Job ID: [id number]
[2020-02-03] MEDS: Vancomycin HCl 1.25 GM in Sodium Chloride 0.9% 250 ML 250 ML IVPB SCH ×2 (00:22→09:25)
[2020-02-03] MEDS: Morphine 4 MG/ML VIAL SLOW IVP PRN ×3 (00:24→11:27)
[2020-02-03] MEDS: HYDROcodone/Acetaminophen 5/325 mg Tablet PO PRN ×2 (03:29→09:36)
[2020-02-03] MEDS: Ampicillin/Sulbactam 3 GM in Sodium Chloride 0.9% 100 ML IVPB SCH ×2 (03:29→09:26)
[2020-02-03] MEDS: Polyethylene Glycol 3350 17 GM Packet PO SCH (09:26)
[2020-02-03] MEDS: Famotidine 20 MG TAB PO SCH (09:27)
[2020-02-03] MEDS: Heparin 5,000 UNITS/ML VIAL SC SCH (09:27)
--- NOTE | 2020-02-03 11:40 | PDOC.HOSPP ---
- Subjective Encounter Date: 02/03/20 Subjective: Seen and examined at bedside. No new event or acute complains. Surgical team coordinating transfer for higher level of care. - Objective Vital Signs & Weight: Vital Signs (12 hours) Temp Pulse Resp BP Pulse Ox 02/03/20 08:11 96 02/03/20 08:01 98.3 F 99 18 124/78 96 02/03/20 03:34 98.2 F 83 18 125/76 98 02/03/20 00:16 98.2 F 77 19 122/74 97 Weight Admit Weight 229 lb 1 oz Weight 229 lb 1 oz I&O: 02/02/20 02/03/20 02/04/20 06:59 06:59 06:59 Intake Total 4750 2430 Output Total 3580 2075 Balance 1192 355 Result Diagrams: 02/02/20 05:33 02/02/20 05:33 Additional Labs: Accuchecks 02/03/20 02/03/20 02/02/20 10:59 05:50 20:53 POC Glucose 97 92 113 H 02/02/20 02/02/20 15:53 12:58 POC Glucose 118 H 78 Hospitalist ROS - Review of Systems Constitutional: denies: fever, chills, sweats, weakness, malaise, other Respiratory: denies: cough, dry, shortness of breath, hemoptysis, SOB with excertion, pleuritic pain, sputum, wheezing, other Cardiovascular: denies: chest pain, palpitations, orthopnea, paroxysmal noc. dyspnea, edema, light headedness, other Gastrointestinal: denies: nausea, vomiting, abdominal pain, diarrhea, constipation, melena, hematochezia, other Genitourinary: denies: dysuria, frequency, incontinence, hematuria, retention, other Musculoskeletal: reports: other Skin: reports: rash, lesions Neurological: denies: weakness, numbness, incoordination, change in speech, confusion, seizures, other - Medication Medications: Active Medications Generic Name Dose Route Start Last Admin Trade Name Freq PRN Reason Stop Dose Admin Hydrocodone Bitart/Acetaminophen 2 tab 01/30/20 09:24 02/03/20 09:36 Hydrocodone/Acetaminophen 5/325 Mg Tablet PO 2 tab Q4H PRN Administration Severe Pain (7-10) Famotidine 20 mg 01/30/20 09:00 12/11/20 09:27 Famotidine 20 Mg Tab PO 20 mg BID JARRET Administration Heparin Sodium (Porcine) 5,000 units 01/30/20 09:00 02/03/20 09:27 Heparin 5,000 Units/Ml Vial SC 5,000 units BID JARRET Administration Vancomycin HCl 1.25 gm/ Sodium 250 mls @ 166.667 mls/hr 01/30/20 23:59 02/03/20 09:25 Chloride IVPB 250 mls 0800,1600,2359 JARRET Administration Ampicillin Sodium/Sulbactam 100 mls @ 200 mls/hr 01/31/20 21:00 02/03/20 09:26 Sodium 3 gm/ Sodium Chloride IVPB 100 mls 0300,0900,1500,2100 JARRET Administration Morphine Sulfate 4 mg 01/30/20 09:24 02/03/20 05:55 Morphine 4 Mg/Ml Vial SLOW IVP 4 mg Q4H PRN Administration Breakthrough Pain Morphine Sulfate 2 mg 01/30/20 09:24 02/02/20 16:20 Morphine 2 Mg/Ml Vial SLOW IVP 2 mg Q4H PRN Administration Breakthrough Pain Polyethylene Glycol 17 gm 01/30/20 09:00 02/03/20 09:26 Polyethylene Glycol 3350 17 Gm Packet PO 17 gm DAILY JARRET Administration Sodium Chloride 10 ml 01/31/20 09:00 02/03/20 09:27 Flush - Normal Saline 10 Ml Syringe IVF 10 ml Q12HR JARRET Administration - Exam General Appearance: NAD, awake alert Eye: PERRL, anicteric sclera ENT: normocephalic atraumatic, no oropharyngeal lesions, moist mucosa Heart: RRR, no murmur, no gallops, no rubs, normal peripheral pulses Respiratory: CTAB, no wheezes, no rales, no ronchi, normal chest expansion, no tachypnea, normal percussion Gastrointestinal: soft, non-tender, non-distended, normal bowel sounds, no palpable masses, no hepatomegaly, no splenomegaly, no bruit Skin - other findings: Chronic wound to gluteal area Hosp A/P - Plan A/P: Back pain with evidence of chronic wounds to gluteal area. Imaging suggestive of possible abscess with fluid collection as well as destructive lesion to pelvis. # Back pain: Back/right gluteal/pelvic/sacral pain appears to be multifactorial and related to chronic pelvic abscesses as well as possible destructive lesion to pelvic bone. CT with contrast of chest/abd/pelvis did not reveal other concerning lesions. MRI with abnormal enhacing of paraspinal area as well as possible tumor as similarly described on CT scan. CT guided biopsy performed on 02-01-20 appears to be negative for malignant cells. Differential diagnosis per pathologist seem ample. ID follows for antibiotic guidance. Patient likely to be transferred to different facility; surgery coordinating transfer. # Chronic gluteal abscess: During exam patient does not appear septic. Will continue current antibiotic regimen. ID service has been consulted. Cultures growing Klebsiella sp & MRSA. # Destructive bone lesion: CT C/A/P w contrast without evidence of other lesions. CT guided biopsy performed on 02-01-20 appears to be negative for malignant. # HTN: Continue with current medication regimen. # DM: Continue with current medication regimen. DISPOSITION: Consideration for transfer to other facility for higher level of care if more complex pelvic surgery intervention is necessary.
[2020-02-03 11:54] VITALS: BP 122/77; TEMP 98.4
--- NOTE | 2020-02-07 23:17 | PQF ---
CLINICAL DOCUMENTATION CLARIFICATION FORM: Dear : Rigo Ramey MD Date / Time: 02/07/2020 Please exercise your independent, professional judgment in responding to the clarification form. Clinical indicators are provided on the bottom of this form for your review Please check appropriate box(es) to clarify if the following diagnosis has been ruled in our ruled out: [ ] Ruled in Sepsis [ ] Continue to treat [ ] Resolved [ ] Ruled out Sepsis [ ] Improving [ X] Cannot rule out diagnosis [ ] Other diagnosis (Please specify if any) [ ] Unable to determine Physician Signature: Date/Time: For continuity of documentation, please document condition throughout progress notes and discharge summary. Thank You. To be completed by CDI/Coding staff for physician review: Present Clinical Indicators - Signs / Symptoms / Labs Results and Location in Medical Record [x] Diagnosis, Primary: sepsis ED provider report on 01/28 [x] Sepsis due to wound infection H&P on 01/29 [x] Patient given broad spectrum ABX, to be admitted for sepsis and infected sacral wounds H&P on 01/29 [x] During exam patient does not appear septic Hospitalist PN from01/29 to 02/02 [x] WBC-11.9 h Laboratory on 01/28 [x] Remains on broad spectrum ABS for coverage of klebsiella sp &MRSA from wound culture Hospitalist PN on 02/01 Present Risk Factors Results and Location in Medical Record [x] Perineal and gluteal abscess Consult on 01/29 [ ] Present Treatments Results and Location in Medical Record [x] Vacnomycin 1.25 gm Iv Medication from 01/29 to 02/02 [ ] [ ] [ ] CDS/Furnace Liner Signature: AAS Phone #: Date/Time: 02/07/2020 This is a permanent part of the Medical Record [facility]
--- NOTE | 2020-02-11 15:38 | PDOC.DS.DS ---
Provider - Provider Date of Admission: 01/29/20 20:28 Date of Discharge: 02/03/20 Admitting Provider: Babar Werner MD Consultations: General Surgery Primary Care Physician: Yolanda Duval MD Course - Hospital Course Hospital Course: HPI per H&P: "Pateint is a 54 year old male with PMH GERD, HTN, DM2, Chronic back pain who presents to ED for R gluteal plain/back/hip pain. Patient has a history of GERD, HTN, DM2, Chronic back pain, and chronic R gluteal abscesses/wounds, patient reports that his wounds have been there since 1995 and he manages them by himself at home. In ED, patient tachycardic, wounds appear erythematous and erythematous and tunneling, Imaging reveals mulitple abscesses, Dr Del Real consulted and requests NPO past midnight. WBC 11.9, hgb 8.7. Patient given broad spectrum ABX, to be admitted for sepsis and infected sacral wounds. of note, CT pelvis mentions infection tracks from right aspect of the sacrum w/ extension into the right iliac bone as well as the anterior right pelvic soft tissues, along the expected region of the sacral plexus. There are at least 2 separate soft tissue abscesses identified on CT with extensive inflammation." Back pain: Back/right gluteal/pelvic/sacral pain appears to be multifactorial and related to chronic pelvic abscesses as well as possible destructive lesion to pelvic bone. CT with contrast of chest/abd/pelvis did not reveal other conc erning lesions. MRI with abnormal enhacing of paraspinal area as well as possible tumor as similarly described on CT scan. CT guided biopsy performed on 02-01-20 appears to be negative for malignant cells. Differential diagnosis per pathologist seem ample. ID follows for antibiotic guidance. Patient likely to be transferred to different facility; surgery coordinating transfer. Resuscitation Status: 01/30/20 00:03 Resuscitation Status Routine Resuscitation Status: FULL: Full Resuscitation - Labs Lab Results: 02/02/20 05:33 02/02/20 05:33 Microbiology - Entire Visit 02/01/20 Unknown Sacral - Fluid Bacterial Culture - Final 02/01/20 Unknown Sacral - Fluid Anaerobic Culture - Final 01/29/20 18:22 Venous blood - Left Arm Blood Culture - Final NO GROWTH IN 5 DAYS 01/29/20 18:22 Venous blood - Right Arm Blood Culture - Final NO GROWTH IN 5 DAYS 01/29/20 19:47 Other source- see comments - Pending Bacterial Culture - Final Klebsiella pneumoniae ssp pneu Methicillin resistant S.aureus - Physical Exam Vitals: Weight Admit Weight 229 lb 1 oz Weight 229 lb 1 oz Physical Exam: The patient was seen and examined on the day of discharge. Problem - Discharge Plan Assessment: # Back pain: Back/right gluteal/pelvic/sacral pain appears to be multifactorial and related to chronic pelvic abscesses as well as possible destructive lesion to pelvic bone. CT with contrast of chest/abd/pelvis did not reveal other concerning lesions. MRI with abnormal enhacing of paraspinal area as well as possible tumor as similarly described on CT scan. CT guided biopsy performed on 02-01-20 appears to be negative for malignant cells. Differential diagnosis per pathologist seem ample. ID follows for antibiotic guidance. Mimi ent likely to be transferred to different facility; surgery coordinating transfer. # Chronic gluteal abscess: During exam patient does not appear septic. Will continue current antibiotic regimen. ID service has been consulted. Cultures growing Klebsiella sp & MRSA. # Destructive bone lesion: CT C/A/P w contrast without evidence of other lesions. CT guided biopsy performed on 02-01-20 appears to be negative for malignant. # HTN: Continue with current medication regimen. # DM: Continue with current medication regimen. DISPOSITION: Consideration for transfer to other facility for higher level of care if more complex pelvic surgery intervention is necessary. Plan - Discharge Medications Home Medications: Medication Instructions Recorded Confirmed Type Acetaminophen With Codeine 1 tablet PO Q6HR PRN 01/30/20 01/30/20 History [Tylenol with Codeine #3] Amoxicillin 500 mg PO Q12HR 01/30/20 01/30/20 History Atenolol 25 mg PO DAILY 01/30/20 01/30/20 History Clindamycin Phosphate [Clindamycin 1 applic TOP BID 01/30/20 01/30/20 History Phosphate 1% Lotion] Diazepam [Valium] 10 mg PO Q8HR PRN 01/30/20 01/30/20 History FLUoxetine HCl [Prozac] 20 mg PO DAILY 01/30/20 01/30/20 History Ferrous Sulfate 324 mg PO BID 01/30/20 01/30/20 History Furosemide [Lasix] 0.5 tab PO DAILY PRN 01/30/20 01/30/20 History metFORMIN [Glucophage] 0.5 tablet PO QAM-WM 01/30/20 01/30/20 History traMADol HCl [Tramadol HCl] 50 tablet PO Q6HR PRN 01/30/20 01/30/20 History Allergies: No Known Allergies Allergy (Verified 01/30/20 03:34) - Follow up Plan Referrals: Yolanda Duval MD [Primary Care Provider] - Disposition: OTHER HOSPITAL INPT Quality - Care Measures CORE MEASURES:: N/A
== END 2020-02-03 11:40 | disposition short-term general hospital (02) | DRG 602 ==
LOC: ERS 18:14 → SJJU 20:28
PROVIDERS: ADMIT Internal Medicine; ATTEND Internal Medicine
PROC: 0WB Anatomical Regions, General, Excision (ICD-10-PCS; principal; 2010-01-31)
DX: L02.31 Cutaneous abscess of buttock (principal); G06.1 Intraspinal abscess and granuloma; K21.9 Gastro-esophageal reflux disease without esophagitis; E11.9 Type 2 diabetes mellitus without complications; I10 Essential (primary) hypertension; G89.29 Other chronic pain; M54.9 Dorsalgia, unspecified; E66.9 Obesity, unspecified; E78.00 Pure hypercholesterolemia, unspecified; E11.42 Type 2 diabetes mellitus with diabetic polyneuropathy; F32.9 Major depressive disorder, single episode, unspecified; L73.2 Hidradenitis suppurativa; Z79.899 Other long term (current) drug therapy; Z79.2 Long term (current) use of antibiotics; Z79.84 Long term (current) use of oral hypoglycemic drugs; M89.8X8 Other specified disorders of bone, other site; Z20.828 Contact with and (suspected) exposure to other viral communicable diseases
CPT/HCPCS: 20225; 36415; 36416; 70491; 71260; 72157; 72158; 72193; 72197; 74177; 77012; 80048; 80053; 80076; 80202; 82805; 83605; 83735; 85025; 85610; 85652; 85730; 86140; 87040; 87070; 87077; 87186; 87205; 87389; 87635; 88173; 88305; 88312; 88333; 93005; 96365; 96367; 96374; A9579; J0295; J0692; J1644; J2250; J2270; J3010; J3370; J3475; J3490; J7030; J7050; Q9967; U0003

== ENCOUNTER 2020-03-27 18:19 | Inpatient (IN) | payer MEDICARE, MEDICAID ==
[2020-03-27 19:18] LABS: Hemoglobin 9.1 g/dL (14.0-18.0); Mean Corpuscular Hemoglobin 23.9 pg (27.0-31.0); Mean Corpuscular Volume 79.7 fL (78.0-98.0); Platelet Count 326 thou/uL (130-400); RBC Distribution Width 20.7 % (11.5-14.5); Red Blood Cell (RBC) Count 3.81 mill/uL (4.70-6.10); White Blood Cell (WBC) Count 19.1 thou/uL (4.8-10.8)
[2020-03-27 19:19] LABS: #Eosinphils 1.3 thou/uL (0.0-0.7); #Lymphocytes 1.8 thou/uL (1.20-3.40); #Monocytes 2.6 thou/uL (0.11-0.59); #Neutrophils 13.4 thou/uL (1.40-6.50); %Basophils 0.1 % (0.0-1.0); %Eosinophils 6.9 % (0.0-10.0); %Lymphocytes 9.4 % (21.0-51.0); %Monocytes 13.4 % (0.0-10.0); %Neutrophils 70.3 % (42.0-75.0)
[2020-03-27 19:22] LABS: ALT (SGPT) Less than 7 U/L (8-55); AST (SGOT) 11 U/L (5-34); Albumin 2.9 g/dL (3.5-5.0); Alkaline Phosphatase 135 U/L (40-110); Anion Gap 10 mmol/L (10-20); BUN (Urea Nitrogen) 11 mg/dL (8.4-25.7); Bilirubin, Total 0.2 mg/dL (0.2-1.2); Calc. Creatinine Clearance 0 mL/min (70-130); Carbon Dioxide 30 mmol/L (22-29); Chloride 116 mmol/L (98-107); Globulin 3.7 g/dL (2.4-3.5); Glucose 104 mg/dL (70-105); Potassium 3.8 mmol/L (3.5-5.1); Protein, Total 6.6 g/dL (6.0-8.3); Sodium 152 mmol/L (136-145)
[2020-03-27 19:28] LABS: Calcium 14.5 mg/dL (7.8-10.44)
[2020-03-27] MEDS ORDERED: VANCOMYCIN 2 GRAM/400 ML BAG 2 GM in Premix Bag 1 BAG IVPB SCH (20:00)
[2020-03-27] MEDS ORDERED: Morphine 4 MG/ML VIAL ONE (20:41)
--- NOTE | 2020-03-27 21:04 | CT ---
CT ABDOMEN AND PELVIS PERFORMED WITH CONTRAST ENHANCEMENT: 03/27/20 HISTORY: Sacral wounds with surrounding infection. The lung bases are clear of any infiltrative process. The liver and spleen as well as pancreas regions appear unremarkable. The patient was scanned prone d ue to the sacral ulcers. There is increased attenuation in the fundus region which would be dependen t on a prone film suggesting some small stones. The right and left adrenal glands are normal. The small hypodensity within the right kidney and the l eft kidney are too small to characterize but most likely cysts. No significant periaortic or mesenter ic adenopathy. Mild amount of stool is seen within the colon. CT OF PELVIS PERFORMED WITH CONTRAST ENHANCEMENT: The soft tissue density associated with the bony destructive change in the right side of the sacrum h as been noted on the previous 02/01/20 exam. I do believe that there is some slight increase to the ov erall bony destructive changes. It appears to have crossed slightly to the left of midline on the cur rent study. This has a fistulous connection to the skin surface in the right upper buttocks region. T here is a more complex fluid collection with fistulous connection to the skin surface. This is more a long the medial margin of the gluteus halima muscle on the right. Also, it appears to partially invo lve the gluteus halima muscle. A surgical drain extends into this area. This is a very complex appea ring fluid density collection. Definitely increased in size with more prominent soft tissue changes e xtending towards the perineum and anal region. The soft tissue changes that are more superficial and more medial in location near the cleavage of the buttocks which also has a surgical drain in place. T his area also now appears to have slightly more prominent connection to the posterior margin of the r ectum. There is also a portion of this that actually tracks along the left side of the perineum and l evator ani muscle in this region. Overall all of these changes are more prominent. The changes on th e left side appear to have a slightly more prominent fistulous connection to the left buttocks region . IMPRESSION: 1. The complex soft tissue density which is eroding the right side of the sacrum has increased s lightly in size with increasing erosive changes of the sacrum. 2. The second area where there is sacral ulcers also more prominent. This is a complex fistulous tract which extends from the skin surface where there is a drain in place. It extends towards the ri ght sided levator ani muscles and along the inferior margin of the coccyx. The changes of the tip of the coccyx are similar to the previous exam. This complex fistulous tract does actually cross posteri oralia behind the rectum and anus region and there is a tract that extends to the left side of the leva tor ani muscles and appears to have a fistulous connection to the skin surface in the left buttocks r egion. All of these changes appears much more prominent than on the previous exam. POS: MADAN
[2020-03-27] MEDS ORDERED: Zoledronic Acid/Mannitol&Water 5 MG in Premix Bag 1 BAG IVPB SCH (22:45)
[2020-03-27] MEDS ORDERED: MANNITOL IVPB SCH (22:47)
[2020-03-27] MEDS ORDERED: WATER IVPB SCH (22:47)
[2020-03-27] MEDS ORDERED: ZOLEDRONIC ACID IVPB SCH (22:47)
--- NOTE | 2020-03-27 22:52 | PDOC.HHP ---
Hospitalist HPI Chronic gluteal ulcers History of Present Illness: This is a 54-year-old male patient with a history of hypertension, diabetes mellitus, hypertension who presents on account of chronic wounds on his sacrum and buttock. He has had this chronic wound for several years and have been managed several times without any significant success. Of note she was recently seen here and further transferred to [facility] for further management and on being discharged has been on ceftriaxone and Flagyl along with vancomycin however he was assessed today and noted to have worsening drainage and no improvement in his condition thus he was sent back to the ED. At presentation BP was 152/88, heart rate 93, respiratory rate 18, temperature 97.9 and saturating 97% on room air. BMP showed hyponatremia of 152, bicarb 30, calcium 14.5, albumin 2.9, alkaline phosphate 135. CBC showed leukocytosis of 19.1, hemoglobin 9.1 and platelet count of 326. His lactate was 1.6 at presentation. He was started on vancomycin and cefepime and hospitalist team was consulted for admission Allergies/Adverse Reactions: Allergy/AdvReac Type Severity Reaction Status Date / Time No Known Allergies Allergy Verified 01/30/20 03:34 Home Medications: Medication Instructions Recorded Confirmed Type Acetaminophen With Codeine 2 tablet PO Q6HR PRN 01/30/20 03/27/20 History [Tylenol with Codeine #3] Atenolol 25 mg PO DAILY 01/30/20 03/27/20 History FLUoxetine HCl [Prozac] 20 mg PO DAILY 01/30/20 03/27/20 History Ferrous Sulfate 324 mg PO DAILY 01/30/20 03/27/20 History traMADol HCl [Tramadol HCl] 2 tablet PO Q6HR PRN 01/30/20 03/27/20 History Famotidine [Pepcid] 1 tab PO BID 03/27/20 03/27/20 History Lactobacillus [Floranex] 1 tab PO DAILY 03/27/20 03/27/20 History Oxycodone HCl [oxyCODONE HCl] 1 tab PO Q6H PRN 03/27/20 03/27/20 History Pantoprazole Sodium 1 tab PO BID 03/27/20 03/27/20 History Polyethylene Glycol 3350 [Miralax] 17 gm PO BID 03/27/20 03/27/20 History Potassium Chloride [Klor-Con 10] 4 tab PO DAILY 03/27/20 03/27/20 History Sennosides/Docusate Sodium 2 tab PO HS 03/27/20 03/27/20 History [Senna-S 8.6-50 mg Tablet] Zinc Sulfate [Orazinc] 1 tab PO DAILY 03/27/20 03/27/20 History cefTRIAXone\ROCEPHIN [Rocephin] 2 gm IV Q24H 03/27/20 03/27/20 History metroNIDAZOLE [Flagyl] 500 mg PO Q8HR 03/27/20 03/27/20 History Past History: PMHx: PSHx: FHx: Social: Hospitalist Results Result Diagrams: 03/27/20 18:51 03/27/20 18:51 Lab results: Laboratory Last Values WBC 19.1 thou/uL (4.8-10.8) H 03/27/20 18:51 RBC 3.81 mill/uL (4.70-6.10) L 03/27/20 18:51 Hgb 9.1 g/dL (14.0-18.0) L 03/27/20 18:51 Hct 30.4 % (42.0-52.0) L 03/27/20 18:51 MCV 79.7 fL (78.0-98.0) 03/27/20 18:51 MCH 23.9 pg (27.0-31.0) L 03/27/20 18:51 MCHC 30.0 g/dL (32.0-36.0) L 03/27/20 18:51 RDW 20.7 % (11.5-14.5) H 03/27/20 18:51 Plt Count 326 thou/uL (130-400) 03/27/20 18:51 MPV 10.0 fL (7.4-10.4) 03/27/20 18:51 Neutrophils % 70.3 % (42.0-75.0) 03/27/20 18:51 Lymphocytes % 9.4 % (21.0-51.0) L 03/27/20 18:51 Monocytes % 13.4 % (0.0-10.0) H 03/27/20 18:51 Eosinophils % 6.9 % (0.0-10.0) 03/27/20 18:51 Basophils % 0.1 % (0.0-1.0) 03/27/20 18:51 Neutrophils # 13.4 thou/uL (1.40-6.50) H 03/27/20 18:51 Lymphocytes # 1.8 thou/uL (1.20-3.40) 03/27/20 18:51 Monocytes # 2.6 thou/uL (0.11-0.59) H 03/27/20 18:51 Eosinophils # 1.3 thou/uL (0.0-0.7) H 03/27/20 18:51 Basophils # 0.0 thou/uL (0.0-0.2) 03/27/20 18:51 Sodium 152 mmol/L (136-145) H 03/27/20 18:51 Potassium 3.8 mmol/L (3.5-5.1) 03/27/20 18:51 Chloride 116 mmol/L (98-107) H 03/27/20 18:51 Carbon Dioxide 30 mmol/L (22-29) H 03/27/20 18:51 Anion Gap 10 mmol/L (10-20) 03/27/20 18:51 BUN 11 mg/dL (8.4-25.7) 03/27/20 18:51 Creatinine 1.04 mg/dL (0.7-1.3) 03/27/20 18:51 Estimated GFR (MDRD) Greater than 90 03/27/20 18:51 Glucose 104 mg/dL (70-105) 03/27/20 18:51 Lactic Acid 1.6 mmol/L (0.5-2.2) 03/27/20 18:51 Calcium 14.5 mg/dL (7.8-10.44) H* 03/27/20 18:51 Total Bilirubin 0.2 mg/dL (0.2-1.2) 03/27/20 18:51 AST 11 U/L (5-34) 03/27/20 18:51 ALT Less than 7 U/L (8-55) L 03/27/20 18:51 Alkaline Phosphatase 135 U/L (40-110) H 03/27/20 18:51 Serum Total Protein 6.6 g/dL (6.0-8.3) 03/27/20 18:51 Albumin 2.9 g/dL (3.5-5.0) L 03/27/20 18:51 Globulin 3.7 g/dL (2.4-3.5) H 03/27/20 18:51 Albumin/Globulin Ratio 0.8 g/dL (1.2-2.2) L 03/27/20 18:51 Hospitalist H&P A/P Plan: This is a 54-year-old male patient with a history of hypertension and diabetes with recurrent sacral and gluteal ulcers on chronic antibiotic therapy presenting again with recurrent lesions. He also appears to have hypercalcemia and hyponatremia. Chronic sacral ulcers This is chronic need debridement Continue antibiotics with vancomycin and cefepime Surgery consult in a.m. Hypercalcemia Calcium 14.5 He does not appear symptomatic Unclear etiology We will hydrate and start zoledronic acid Monitor calcium Check PTH in a.m. Hypernatremia Sodium is 152 Possibly hypovolemic We will rehydrate Continue with dextrose after initial hydration. Monitor BMP Anemia Hemoglobin 9.1 From chronic loss from wounds We will monitor H&H Transfuse if hemoglobin less than 7. VT prophylaxisLovenox CODE STATUSfull code
[2020-03-27 23:01] VITALS: BMI 26.8
[2020-03-27] MEDS ORDERED: Piperacillin/Tazobactam 4.5 GM in Sodium Chloride 0.9% 100 ML IVPB SCH (23:15)
[2020-03-27] MEDS ORDERED: Sodium Chloride 0.9% 1,000 ML IV SCH (23:15)
[2020-03-27] MEDS ORDERED: Zoledronic Acid 4 MG in Sodium Chloride 0.9% 100 ML IVPB SCH (23:30)
[2020-03-28] MEDS ORDERED: Ondansetron PF 4 MG/2 ML Vial IVP PRN (00:03)
[2020-03-28] MEDS ORDERED: Ondansetron ODT 4 MG TAB PO PRN (00:03)
[2020-03-28] MEDS ORDERED: Acetaminophen 500 MG TAB PO PRN (00:37)
[2020-03-28] MEDS: Sodium Chloride 0.9% 1,000 ML IV SCH ×2 (00:40→13:33)
[2020-03-28] MEDS ORDERED: Morphine 4 MG/ML VIAL ONE (03:28)
[2020-03-28] MEDS ORDERED: Piperacillin/Tazobactam 4.5 GM in Sodium Chloride 0.9% 100 ML IVPB SCH (06:00)
[2020-03-28 07:21] LABS: ALT (SGPT) Less than 7 U/L (8-55); AST (SGOT) 9 U/L (5-34); Albumin 2.5 g/dL (3.5-5.0); Alkaline Phosphatase 120 U/L (40-110); Anion Gap 12 mmol/L (10-20); BUN (Urea Nitrogen) 10 mg/dL (8.4-25.7); Bilirubin, Total 0.2 mg/dL (0.2-1.2); Calc. Creatinine Clearance 99 mL/min (70-130); Calcium 13.9 mg/dL (7.8-10.44); Carbon Dioxide 26 mmol/L (22-29); Chloride 118 mmol/L (98-107); Globulin 3.5 g/dL (2.4-3.5); Glucose 102 mg/dL (70-105); Potassium 3.3 mmol/L (3.5-5.1); Sodium 153 mmol/L (136-145)
--- NOTE | 2020-03-28 07:23 | PDOC.HHP ---
Hospitalist HPI Chronic sacral wounds History of Present Illness: This is a 54-year-old male patient with a history of hypertension, diabetes mellitus, hypertension who presents on account of chronic wounds on his sacrum a nd buttock. He has had this chronic wound for several years and have been managed several times without any significant success. Of note she was recently seen here and further transferred to [facility] for further management and on being discharged has been on ceftriaxone and Flagyl along with vancomycin however he was assessed today and noted to have worsening drainage and no improvement in his condition thus he was sent back to the ED. At presentation BP was 152/88, heart rate 93, respiratory rate 18, temperature 97.9 and saturating 97% on room air. BMP showed hyponatremia of 152, bicarb 30, calcium 14.5, albumin 2.9, alkaline phosphate 135. CBC showed leukocytosis of 19.1, hemoglobin 9.1 and platelet count of 326. His lactate was 1.6 at presentation. He was started on vancomycin and cefepime and hospitalist team was consulted for admission. Allergies/Adverse Reactions: Allergy/AdvReac Type Severity Reaction Status Date / Time No Known Allergies Allergy Verified 01/30/20 03:34 Home Medications: Medication Instructions Recorded Confirmed Type Acetaminophen With Codeine 2 tablet PO Q6HR PRN 01/30/20 03/27/20 History [Tylenol with Codeine #3] Atenolol 25 mg PO DAILY 01/30/20 03/27/20 History FLUoxetine HCl [Prozac] 20 mg PO DAILY 01/30/20 03/27/20 History Ferrous Sulfate 324 mg PO DAILY 01/30/20 03/27/20 History traMADol HCl [Tramadol HCl] 2 tablet PO Q6HR PRN 01/30/20 03/27/20 History Famotidine [Pepcid] 1 tab PO BID 03/27/20 03/27/20 History Lactobacillus [Floranex] 1 tab PO DAILY 03/27/20 03/27/20 History Oxycodone HCl [oxyCODONE HCl] 1 tab PO Q6H PRN 03/27/20 03/27/20 History Pantoprazole Sodium 1 tab PO BID 03/27/20 03/27/20 History Polyethylene Glycol 3350 [Miralax] 17 gm PO BID 03/27/20 03/27/20 History Potassium Chloride [Klor-Con 10] 4 tab PO DAILY 03/27/20 03/27/20 History Sennosides/Docusate Sodium 2 tab PO HS 03/27/20 03/27/20 History [Senna-S 8.6-50 mg Tablet] Zinc Sulfate [Orazinc] 1 tab PO DAILY 03/27/20 03/27/20 History cefTRIAXone\ROCEPHIN [Rocephin] 2 gm IV Q24H 03/27/20 03/27/20 History metroNIDAZOLE [Flagyl] 500 mg PO Q8HR 03/27/20 03/27/20 History Past History: PMHx: PSHx: FHx: Social: Hospitalist Exam Vitals: Vital Signs (12 hours) Temp Pulse Resp BP Pulse Ox 03/27/20 22:45 98.2 F 91 16 115/74 99 Weight Weight 176 lb 9 oz Hospitalist Results Result Diagrams: 03/27/20 18:51 03/27/20 18:51 Lab results: Laboratory Last Values WBC 19.1 thou/uL (4.8-10.8) H 03/27/20 18:51 RBC 3.81 mill/uL (4.70-6.10) L 03/27/20 18:51 Hgb 9.1 g/dL (14.0-18.0) L 03/27/20 18:51 Hct 30.4 % (42.0-52.0) L 03/27/20 18:51 MCV 79.7 fL (78.0-98.0) 03/27/20 18:51 MCH 23.9 pg (27.0-31.0) L 03/27/20 18:51 MCHC 30.0 g/dL (32.0-36.0) L 03/27/20 18:51 RDW 20.7 % (11.5-14.5) H 03/27/20 18:51 Plt Count 326 thou/uL (130-400) 03/27/20 18:51 MPV 10.0 fL (7.4-10.4) 03/27/20 18:51 Neutrophils % 70.3 % (42.0-75.0) 03/27/20 18:51 Lymphocytes % 9.4 % (21.0-51.0) L 03/27/20 18:51 Monocytes % 13.4 % (0.0-10.0) H 03/27/20 18:51 Eosinophils % 6.9 % (0.0-10.0) 03/27/20 18:51 Basophils % 0.1 % (0.0-1.0) 03/27/20 18:51 Neutrophils # 13.4 thou/uL (1.40-6.50) H 03/27/20 18:51 Lymphocytes # 1.8 thou/uL (1.20-3.40) 03/27/20 18:51 Monocytes # 2.6 thou/uL (0.11-0.59) H 03/27/20 18:51 Eosinophils # 1.3 thou/uL (0.0-0.7) H 03/27/20 18:51 Basophils # 0.0 thou/uL (0.0-0.2) 03/27/20 18:51 Sodium 152 mmol/L (136-145) H 03/27/20 18:51 Potassium 3.8 mmol/L (3.5-5.1) 03/27/20 18:51 Chloride 116 mmol/L (98-107) H 03/27/20 18:51 Carbon Dioxide 30 mmol/L (22-29) H 03/27/20 18:51 Anion Gap 10 mmol/L (10-20) 03/27/20 18:51 BUN 11 mg/dL (8.4-25.7) 03/27/20 18:51 Creatinine 1.04 mg/dL (0.7-1.3) 03/27/20 18:51 Estimated GFR (MDRD) Greater than 90 03/27/20 18:51 Glucose 104 mg/dL (70-105) 03/27/20 18:51 POC Glucose 93 mg/dL (70-100) 03/28/20 05:22 Lactic Acid 1.6 mmol/L (0.5-2.2) 03/27/20 18:51 Calcium 14.5 mg/dL (7.8-10.44) H* 03/27/20 18:51 Total Bilirubin 0.2 mg/dL (0.2-1.2) 03/27/20 18:51 AST 11 U/L (5-34) 03/27/20 18:51 ALT Less than 7 U/L (8-55) L 03/27/20 18:51 Alkaline Phosphatase 135 U/L (40-110) H 03/27/20 18:51 Serum Total Protein 6.6 g/dL (6.0-8.3) 03/27/20 18:51 Albumin 2.9 g/dL (3.5-5.0) L 03/27/20 18:51 Globulin 3.7 g/dL (2.4-3.5) H 03/27/20 18:51 Albumin/Globulin Ratio 0.8 g/dL (1.2-2.2) L 03/27/20 18:51 Hospitalist H&P A/P Plan: This is a 54-year-old male patient with a history of hypertension and diabetes with recurrent sacral and gluteal ulcers on chronic antibiotic therapy presenting again with recurrent lesions. He also appears to have hypercalcemia and hyponatremia. Recurrent sacral ulcers This is chronic need debridement Continue antibiotics with vancomycin and cefepime Surgery consult in a.m. Hypercalcemia Calcium 14.5 He does not appear symptomatic Unclear etiology We will hydrate and start zoledronic acid Monitor calcium Check PTH in a.m. Hypernatremia Sodium is 152 Possibly hypovolemic We will rehydrate Continue with dextrose after initial hydration. Monitor BMP Anemia Hemoglobin 9.1 From chronic loss from wounds We will monitor H&H Transfuse if hemoglobin less than 7. VT prophylaxisLovenox CODE STATUSfull code
[2020-03-28 07:38] LABS: SARS-CoV-2 PCR by NAA Not Detected (NotDetected)
[2020-03-28] MEDS ORDERED: VANCOMYCIN 1.25 GM/250 ML BAG 1.25 GM in Premix Bag 1 BAG IVPB SCH (08:00)
[2020-03-28] MEDS ORDERED: Vancomycin 1.5 GRAM/300 ML BAG 1.5 GM in Premix Bag 1 BAG IVPB SCH (08:00)
[2020-03-28] MEDS: Piperacillin/Tazobactam 4.5 GM in Sodium Chloride 0.9% 100 ML IVPB SCH ×2 (08:09→17:14)
[2020-03-28] MEDS: Morphine 2 MG/ML VIAL SLOW IVP PRN ×3 (10:07→18:27)
[2020-03-28] MEDS ORDERED: Iopamidol-370 76% 500 ML 1 ML ONE (11:47)
--- NOTE | 2020-03-28 16:15 | CON ---
DATE OF CONSULTATION: HISTORY OF PRESENT ILLNESS: Master Camejo is a 54-year-old male patient who is here in January. Dr. Del Real saw him. He had a complicated multiple abscesses in his buttocks. He was seen in consultation in hospitalization by Dr. Del Real and Dr. Mckinney and Dr. Rod. He apparently had radiological imaging suggestive of a sacral lesion. Biopsies performed, revealing it to be atypical and inflammatory, but not malignant. The patient has had long-standing multiple infections of buttocks. He was transferred to [facility] for higher level of care and has had multiple [place] drains placed, but has continued drainage and problems. Dermatology has seen him in the past and put ointment. The patient has had involvement of his coccyx. The patient has multiple tracts and [place] drains in these tracts and has continued purulent drainage. He does have a history of hypertension and diabetes mellitus. His calcium is noted to be 14.5, asymptomatic, started on zoledronic acid. Chronic anemia. In the hospital, he has been afebrile. His white count is 19, hemoglobin 9.1. Basic metabolic profile normal. Calcium has fallen from 14.5 to 13.9. The patient states that he wants to go home as he is in the assisted living facility. ALLERGIES: NONE. SOCIAL HISTORY: Tobacco, none. Alcohol, none. MEDICATIONS: 1. Tylenol No. 3. 2. Atenolol. 3. Fluoxetine. 4. Ferrous sulfate. 5. Tramadol. 6. . 7. Floranex. 8. Oxycodone. 9. Protonix. 10. MiraLAX. 11. Potassium. 12. Stool softener. 13. Ceftriaxone. 14. Flagyl. Scar, sternum to his mid right abdomen, the patient states this was from a razor blade cut and was superficial. PAST MEDICAL HISTORY: Chronic gluteal abscesses, hypertension, type 2 diabetes mellitus, chronic back pain, reflux. PHYSICAL EXAMINATION: VITAL SIGNS: Height 5 feet 8 inches, 176 pounds, 26 BMI. Temperature 98.6, pulse 109, blood pressure 99/59. LUNGS: Clear to auscultation. CARDIAC: Regular rate and rhythm without murmur or gallop. ABDOMEN: Soft. EXTREMITIES: Unremarkable. Buttocks, bilateral complex abscesses, fistulous tracts, sebaceous cyst with point drainage of chronic abscesses. DIAGNOSTIC STUDIES: CAT scan of the abdomen and pelvis performed in this hospitalization compared to past, right sacral changes with destruction from chronic infection, perhaps crossing to the left of midline. Multiple skin and soft tissue changes from the chronic infection, buttocks. ASSESSMENT AND PLAN: 1. Complex infection, fistulous abscess, buttocks. We will plan debridement, incision and drainage as indicated. He has an extensive process. This is chronic and will be difficult to manage, but we will debride this and drain this and provide open wounds for better wound care. He may initially need a colostomy in the future laparoscopically. 2. Hypercalcemia, uncertain etiology. Continue to monitor. Job ID: [id number]
--- NOTE | 2020-03-28 16:39 | PDOC.HOSPP ---
- Subjective Encounter Date: 03/28/20 Subjective: Patient indicated to me today that he wanted to go home. Specifically he wanted to go home to his home in [place] and not back to the nursing facility. I explained to him that the only way to do that at this point would be to consider palliative approach she indicated that he did not want that and wanted to continue to pursue treatment. Denies a substantial amount of pain related to this. Tells me that primarily he is weak in his lower extremities because of a prior spinal issue that required some surgery but left him profoundly debilitated. He says he can get up and walk a little at times. - Objective Vital Signs & Weight: Vital Signs (12 hours) Temp Pulse Resp BP Pulse Ox 03/28/20 14:18 123/81 03/28/20 11:34 98.6 F 109 H 18 99/59 L 98 03/28/20 07:44 97.7 F 100 18 110/65 97 Weight Weight 176 lb 9 oz Result Diagrams: 03/27/20 18:51 03/28/20 02:04 Additional Labs: Accuchecks 03/28/20 03/28/20 11:34 05:22 POC Glucose 77 93 Hospitalist ROS - Medication Medications: Active Medications Generic Name Dose Route Start Last Admin Trade Name Freq PRN Reason Stop Dose Admin Acetaminophen 1,000 mg 03/28/20 00:37 03/28/20 00:45 Acetaminophen 500 Mg Tab PO 1,000 mg Q6H PRN Administration PAIN/FEVER Piperacillin Sod/Tazobactam 100 mls @ 200 mls/hr 03/28/20 08:00 03/28/20 08:09 Sod 4.5 gm/ Sodium Chloride IVPB 100 mls [id number] JARRET Administration Zoledronic Acid 4 mg/ Sodium 100 mls @ 400 mls/hr 03/27/20 23:30 03/28/20 00:40 Chloride IVPB 03/28/20 02:00 100 mls NOW JARRET Administration Piperacillin Sod/Tazobactam 100 mls @ 200 mls/hr 03/27/20 23:15 03/27/20 23:40 Sod 4.5 gm/ Sodium Chloride IVPB 03/28/20 01:15 100 mls NOW JARRET Administration Morphine Sulfate 2 mg 03/28/20 09:15 03/28/20 14:18 Morphine 2 Mg/Ml Vial SLOW IVP 2 mg Q4H PRN Administration Moderate to Severe Pain (6-10) Ondansetron HCl 4 mg 03/28/20 00:03 03/28/20 00:41 Ondansetron Pf 4 Mg/2 Ml Vial IVP 4 mg Q6H PRN Administration Nausea/Vomiting Hospitalist Exam Vitals: Vital Signs (12 hours) Temp Pulse Resp BP Pulse Ox 03/28/20 14:18 123/81 03/28/20 11:34 98.6 F 109 H 18 99/59 L 98 03/28/20 07:44 97.7 F 100 18 110/65 97 Weight Weight 176 lb 9 oz General Appearance: NAD, awake alert, ill appearing General - other findings: Lying prone in the bed. Heart: RRR, no murmur, no gallops, no rubs, normal peripheral pulses Respiratory: CTAB, no wheezes, no rales, no ronchi, normal chest expansion, no tachypnea, normal percussion Gastrointestinal: soft, non-tender, non-distended Extremities: no cyanosis, no clubbing, 1+ LE edema Skin - other findings: Lesions of the buttock and sacrum noted Musculoskeletal: generalized weakness Hosp A/P (1) Sacral decubitus ulcer, stage IV Code(s): L89.154 - PRESSURE ULCER OF SACRAL REGION, STAGE 4 Status: Acute (2) Hypercalcemia Code(s): E83.52 - HYPERCALCEMIA Status: Acute (3) Hypernatremia Code(s): E87.0 - HYPEROSMOLALITY AND HYPERNATREMIA Status: Acute (4) Anemia Code(s): D64.9 - ANEMIA, UNSPECIFIED Status: Acute - Plan Infected sacral decubitus stage IV: Complex situation with numerous fistula and evidence of tracking toward the rectum/anus area. Patient previously had imaging concerning for possible malignancy but biopsy appeared to disprove that. Patient has been on antibiotics and appears to have progressed in spite of drains being placed in [place] and of course of the antibiotics. General surgery consulted. Appears at this point that the plan is to move forward with significant debridement of the area. Continue with broad-spectrum antibiotics with vancomycin and Zosyn. Hypernatremia: Patient presented with a sodium of 152. Concerning for hypovolemia. He received IV hydration with normal saline. Sodium actually went up slightly. IV fluids have been changed to one half NS. Continue to monitor. This was apparently starting to evolve prior to his discharge in February. Hypercalcemia: Fairly severe. Slightly better with hydration. His zolendronate given. Continue IV fluids. Etiology is concerning for possible osteolytic nature of the wound infection. Also concerning for possible neoplastic issue although with thus far it appears to be disproven by biopsy. Anemia: Likely secondary to chronic disease. Stable compared to prior numbers.
--- NOTE | 2020-03-28 18:20 | PRG ---
DATE OF SERVICE: 03/28/2020 REASON: Perianal inflammatory process and sacral lesion. HISTORY OF PRESENT ILLNESS: A 54-year-old whom I had seen in January 2020 when he presented with a longstanding history of chronic draining sinuses and nodules, perianal and gluteal and axillary regions since 1995. Previously managed by Dr. Mercedes with resection and the axillary process seems to have entered remission after the extensive surgical interventions, but the gluteal area, presacral region has been causing the most of the problems over the past few years. He also developed a chronic back pain since 2016, been to the emergency room multiple times. In June 2018, he had a lumbar spine MRI which showed multilevel degenerative disk disease. There is another x-ray from the lumbar spine in June 2018, which showed multilevel degenerative disease, however, in January, he developed weakness in lower extremities, progressive to the point that he had to use a walker for mobility. He also noticed worsening drainage from the fistulous openings and abscesses in the gluteal region and presacral region, so he was admitted. Additional pertinent items in his history includes hypertension, type 2 diabetes, so my assessment then was chronic hydradenitis suppurative axillary, perianal area, gluteal area associated with Acne conglobata, chronic draining sinuses in the gluteal area and then worsening back pain with sacral lesions identified on the MRI. The MRI showed subcutaneous soft-tissue abscess, abnormal signal intensity in the right aspect of the sacrum and ischium with obliteration of neural foramina. The biopsies that were done included 2 samples, one from the surgical I and D and the other was a needle biopsy. The pathology of the surgical specimen showed squamous cell epithelium with inflammatory change and necrosis and then there was a fine-needle aspirate, which showed inflamed squamous cells with associated necrosis as well, so the hypophyseal malignancy was not confirmed. He was discharged on February 10 and so he was continued on IV antimicrobial therapy through a PICC line, it is not clear to me what facility, looks like he went to the hospital in [place] under the supervision of Dr. Duval. He actually was transferred to [facility] and he was given IV antimicrobials, surgical incision and drainage, [place] drains were placed and then transferred to [facility] with IV vancomycin and ceftriaxone and Flagyl through PICC line and the wounds kept getting worse, so he was transferred back here. His BP is 130/80, pulse 96, temperature 98.9, and O2 saturation 99%. Other findings included white cell count 19,000, hemoglobin 9.1, platelets 326 with 70% neutrophils. His creatinine is 1.04, calcium 14.5. Previous calcium levels were within normal limits. IMAGING STUDIES: Include an abdomen and pelvis CT from yesterday which demonstrated a complex soft-tissue density eroding the right side of the sacrum, increased slightly in size, increasing erosive changes of the sacrum. There is a second area where the sacral ulcers are more prominent. The complex fistulous tract extending from the skin surface towards the right side of the levator ani muscles. All those changes are more prominent than previously noted in prior exams. Currently, Mr. Camejo is lying in a prone position. He has those gluteal areas with the [place] drains wrapped around the multiple tracts. This seems to be something that was done at [facility]. Dr. Price is preparing for surgery tomorrow. The patient is obviously uncomfortable at rest. He is asking to be offered something to drink and he wants to urinate as well, which is difficult because of his position and motion limitations. He denies headaches. No visual symptoms, sore throat, odynophagia, or dysphagia. No dyspnea or cough. No abdominal pain. He has marked pain in the gluteal region. No joint symptoms. PAST MEDICAL HISTORY: Type 2 diabetes mellitus, hypertension, GERD, hidradenitis suppurativa in axillary and gluteal region since 1995, back pain. ALLERGY HISTORY: Negative. SOCIAL HISTORY: Used to work with trees. Disabled for many years now. He used to smoke, but quit. Drinks occasionally. Had been living with sister in [place], but now he is in [facility]. FAMILY HISTORY: Noncontributory. CURRENT MEDICATIONS: 1. Ondansetron. 2. Zosyn. 3. Vancomycin. 4. Zoledronic acid. PHYSICAL EXAMINATION: VITAL SIGNS: Temperature is normal, BP 120/80, heart rate 109, respirations 18, O2 saturation 98% on room air. GENERAL: Appears in some distress from pain. SKIN: Shows those multiple fistulous tracts with purulent drainage in the gluteal area right and left side with [place] drains wrapped around from [facility] admission. He also has midline areas of fistular and fistulous drainage with purulent exudate emanating from those wounds quite prominently. He has no Garcia catheter. He has a peripheral IV access and no lymphadenopathy. Axillary area is not active. The groin also is not active. HEENT: The ocular movements are conjugate. Oral cavity with numerous missing teeth. No jugular vein distention. LUNGS: Symmetric, clear breath sounds. HEART: S1, S2. Regular rate. No S3 or S4. ABDOMEN: Soft, not distended or tender. EXTREMITIES: He is able to move extremities, but is limited by the pain associated with lesions. LABORATORY DATA: Sodium 152, creatinine 1.04, calcium 13.9, alkaline phosphatase 120, albumin 2.5, PTH was less than 4. SARS-CoV-2 RNA PCR negative. Abdomen and pelvis CT scan report was discussed above. 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 He does have this expansile lesion burrowing into the sacrum plus the hypercalcemia now is detected makes it very likely that he has malignancy and the reason that the previous sample did not obtain a diagnostic pathology result is probably from sampling issues, is going to be going for more surgical interventions and hopefully, we can get a diagnosis at this time. He needs IV fluids and usual management for hypercalcemia, but again he is on antimicrobial therapy, but I think we really need to address this mass that is eating up the sacral bone. Job ID: [id number]
[2020-03-28] MEDS: Sodium Chloride 0.45% 1,000 ML IV SCH (18:27)
[2020-03-28] MEDS: Vancomycin HCl 1.5 GM in Sodium Chloride 0.9% 250 ML 300 ML IVPB SCH (20:01)
[2020-03-28] MEDS: Senokot S 8.6-50 MG TAB PO SCH (20:02)
[2020-03-28] MEDS: Pantoprazole 40 MG VIAL IVP SCH (20:02)
[2020-03-28] MEDS: Polyethylene Glycol 3350 17 GM Packet PO SCH (20:03)
--- NOTE | 2020-03-28 20:18 | PDOC.BPN ---
- Brief Progress Note Encounter Date: 03/29/20 I was notified of patient having tachycardia and he has not been anticoagulated and has concerns for possible PE. He has hypercalcemia with low PTHconcerning for malignancy. This could increase his risk of PE On assessment patient was generally comfortable and denied any chest pain or shortness of breath. He had no fever or any other signs to explain his tachycardia however. I gave him 5 mg of IV metoprolol which brought his heart rate down from the 120s to 90s/100. Started him on prophylactic heparin SC which can be stopped on short notice if surgery is indicated CTA was done which was negative with no obvious indication of malignancy Nonspecific mildly enlarged infra clavicular lymph nodes noted. He may need further oncology assessment for source of potential malignancy/granulomatous origin for his hypercalcemia.
[2020-03-28] MEDS ORDERED: Metoprolol Tartrate 5 MG/5 ML VIAL IVP PRN (20:21)
[2020-03-28] MEDS: Heparin 5,000 UNITS/ML VIAL SC SCH (20:55)
--- NOTE | 2020-03-28 22:23 | CT ---
CT ANGIOGRAM THORAX WITH IV CONTRAST AND 3-D RECONSTRUCTIONS CLINICAL INDICATION: Tachycardia. COMPARISON: CT thorax on 01/30/2020 FINDINGS: Pulmonary arteries: No filling defects are seen in the central or proximal segmental pulmonary arteri es. However due to timing of the contrast bolus, there is suboptimal opacification of the distal segmental and subsegmental pulmonary arteries, and pulmonary emboli at these levels is difficult to e valuate. Aorta: The aorta is normal in caliber without evidence of an aortic dissection. Lungs: This examination was performed with patient in prone positioning. There is dependent atelectas is anteriorly within the lungs. No consolidation, pleural fluid, pulmonary nodule, or mass seen within the lungs bilaterally. The large airways are patent. Mediastinum: A right subclavian central venous catheter is noted in place. There is a mildly prominen t infraclavicular lymph node present measuring 1.1 cm in short axis dimension. This was also present on study in 2019. No enlarged mediastinal, hilar, or axillary lymph nodes are seen. Thyroid gland: Not imaged on this exam. Osseous structures: Mild bilateral glenohumeral osteoarthropathy. No suspicious lytic or sclerotic os seous lesions are identified. Chest wall: There is increased density seen in the anterolateral aspect right axilla which could be r elated to skin thickening and/or redundancy of the soft tissues in this region. However, this is difficult to further evaluate on this exam. Upper abdomen: Within normal limits for phase of imaging. IMPRESSION: 1. No CT evidence for pulmonary embolus involving the central or proximal segmental pulmonary arterie s. However, there is suboptimal opacification of the distal segmental and subsegmental pulmonary arteries and pulmonary emboli at this level with difficult to exclude. 2. Thoracic aorta is normal in caliber without evidence of an aortic dissection. 3. No consolidation or pleural fluid is seen in the lungs bilaterally. 4. Nonspecific mildly prominent infraclavicular lymph nodes.
[2020-03-29] MEDS: Piperacillin/Tazobactam 4.5 GM in Sodium Chloride 0.9% 100 ML IVPB SCH ×3 (00:06→17:10)
[2020-03-29] MEDS: Sodium Chloride 0.45% 1,000 ML IV SCH ×2 (00:07→06:16)
[2020-03-29] MEDS ORDERED: Heparin 25,000 units/D5W 500 ML IVPB SCH (04:30)
[2020-03-29] MEDS ORDERED: Heparin 10,000 UNITS/ 10 ML VIAL SLOW IVP SCH (04:30)
[2020-03-29 07:19] LABS: ALT (SGPT) Less than 7 U/L (8-55); AST (SGOT) 13 U/L (5-34); Albumin 2.7 g/dL (3.5-5.0); Alkaline Phosphatase 119 U/L (40-110); Anion Gap 13 mmol/L (10-20); BUN (Urea Nitrogen) 11 mg/dL (8.4-25.7); Bilirubin, Total 0.3 mg/dL (0.2-1.2); Calc. Creatinine Clearance 88 mL/min (70-130); Carbon Dioxide 26 mmol/L (22-29); Chloride 124 mmol/L (98-107); Globulin 3.2 g/dL (2.4-3.5); Glucose 84 mg/dL (70-105); Potassium 3.1 mmol/L (3.5-5.1); Protein, Total 5.9 g/dL (6.0-8.3); Sodium 160 mmol/L (136-145)
[2020-03-29 07:24] LABS: Band 15 % (5-11); Eosinophils 3 % (0-10); Hemoglobin 8.7 g/dL (14.0-18.0); Hypochromia SLIGHT = 6-15 cells (100X) (0-5/hpf); Lymphocytes 14 % (21-51); MDiff Complete? YES; Mean Corpuscular HGB CONC 29.1 g/dL (32.0-36.0); Mean Corpuscular Volume 79.3 fL (78.0-98.0); Mean Platelet Volume 10.5 fL (7.4-10.4); Monocytes 10 % (0-10); Neutrophil 56 % (42-75); Platelet Count 305 thou/uL (130-400); Platelet Morphology Comment Appears Adequate; Polychromasia SLIGHT = 2-3 cells (100X) (0-2/hpf); RBC Distribution Width 21.1 % (11.5-14.5); Reactive Lymphocytes 1 % (0-10); Red Blood Cell (RBC) Count 3.76 mill/uL (4.70-6.10); White Blood Cell (WBC) Count 18.6 thou/uL (4.8-10.8)
[2020-03-29] MEDS ORDERED: Potassium Chloride 40 MEQ in Sodium Chloride 0.9% 250 ML 250 ML IVPB SCH (07:30)
[2020-03-29 08:00] LABS: Vancomycin, Trough 29.3 ug/mL
[2020-03-29] MEDS ORDERED: Atenolol 25 MG TAB PO SCH (09:00)
[2020-03-29] MEDS ORDERED: FLUoxetine HCl 20 MG CAP PO SCH (09:00)
[2020-03-29] MEDS ORDERED: Zinc Sulfate 220 MG CAP PO SCH (09:00)
[2020-03-29] MEDS: Polyethylene Glycol 3350 17 GM Packet PO SCH ×2 (09:50→20:19)
[2020-03-29] MEDS: traMADol HCl 50 MG TAB PO PRN ×2 (09:51→22:59)
[2020-03-29] MEDS: Heparin 5,000 UNITS/ML VIAL SC SCH ×3 (09:52→20:18)
[2020-03-29] MEDS: Pantoprazole 40 MG VIAL IVP SCH ×2 (10:37→20:19)
[2020-03-29] MEDS: Vancomycin HCl 1.5 GM in Sodium Chloride 0.9% 250 ML 300 ML IVPB SCH (10:37)
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
[2020-03-29 12:32] LABS: Troponin I Less than 0.010 ng/mL (< 0.028)
[2020-03-29 14:14] LABS: Anion Gap 12 mmol/L (10-20); BUN (Urea Nitrogen) 10 mg/dL (8.4-25.7); Calc. Creatinine Clearance 96 mL/min (70-130); Carbon Dioxide 23 mmol/L (22-29); Chloride 124 mmol/L (98-107); Glucose 90 mg/dL (70-105); Sodium 156 mmol/L (136-145)
[2020-03-29 14:21] LABS: Calcium 12.1 mg/dL (7.8-10.44); Potassium 2.9 mmol/L (3.5-5.1)
[2020-03-29] MEDS ORDERED: Potassium Chloride 20 MEQ TAB PO SCH ×2 (14:30→18:45)
--- NOTE | 2020-03-29 15:57 | PRG ---
DATE OF SERVICE: 03/29/2020 SUBJECTIVE: Mr. Camejo is lying in the prone position, is drinking apple juice pretty much as the only intake that he has had this morning. Apparently being transferred to [place] for further evaluation and management. OBJECTIVE: VITAL SIGNS: His temperature is normal. BP 109/76, heart rate 91, respirations 20, saturating 99. LUNGS: Clear. HEART: S1, S2. Regular rate. ABDOMEN: Difficult to examine because of his position. The gluteal area unchanged. LABORATORY DATA: White cell count 18.6, hemoglobin 8.7, platelets 305, 15% bands. Creatinine 1.02, calcium 2.1. 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 This expansile lesion burrowing into the sacrum plus the hypercalcemia, makes it very likely that he has malignancy, so transfer is being carried out to obtain a proper tissue diagnosis and allow treatment. Job ID: [id number] [facility]
--- NOTE | 2020-03-29 16:29 | PQF ---
CLINICAL DOCUMENTATION CLARIFICATION FORM: Dear Dr. Bower Date: 03/29/20 Please exercise your independent, professional judgment in responding to the clarification form. Clinical indicators are provided on the bottom of this form for your review. Please check appropriate box(es): [ x ] Sepsis due to: sacral wound infection [ ] Severe sepsis with associated acute organ dysfunction: [ ] Acute Respiratory Failure [ ] Acute Kidney injury w/o ATN [ ] Acute Kidney Injury w ATN [ ] Encephalopathy (metabolic) (septic) [ ] Disseminated Intravascular Coagulopathy (DIC) [ ] Hepatic Failure [ ] Additional/Other: please specify: [ ] Localized infection without sepsis [ ] SIRS due to non-infectious process (please specify etiology) [ ] with organ dysfunction [ ] without organ dysfunction [ ] Other diagnosis [ ] Unable to determine In addition, please specify: Present on Admission (POA): [ x ] Yes [ ] No [ ] Unable to determine For continuity of documentation, please document condition throughout progress notes and discharge summary. Thank You. To be completed by CDI/Coding staff for physician review: CLINICAL INDICATORS - SIGNS / SYMPTOMS / LABS / RESULTS AND LOCATION IN MR WBC 2/: 19.1 BANDS /: 15 PULSE 102-122 (SEE VS RECORD) RISK FACTORS / RESULTS AND LOCATION IN MR INFECTED STAGE IV SACRAL DECUBITUS ULCER (PN 2/-HERMAN) TREATMENTS / RESULTS AND LOCATION IN MR GENERAL SURGERY CONSULT IV VANCOMYCIN (ER) IV CEFEPIME (ER) IV ZOSYN (2/3-PRESENT) IV VANCOMYCIN (START 03/29) BLOOD CULTURES 03/27 CDS Signature: Princess Valdes RN Phone #: [phone] Date: 03/29/20 This is a permanent part of the Medical Record [facility]
--- NOTE | 2020-03-29 17:07 | PDOC.DS.DS ---
Provider Date of Admission: 03/27/20 21:52 Date of Discharge: 03/29/20 Admitting Provider: Nehemias Ariza MD Consultations: General Surgery, Infectious Disease Course Hospital Course: Patient is a 54-year-old male who reports some generalized weakness due to some prior back issues. He also has some hidradenitis suppurativa leading to some lesions on the buttock and sacral area. Patient had been admitted to this facility on January 28. At that time CT scan showed some tunneling, fistulization and tracking into the perirectal areas. Patient was subsequently transferred to [facility]. There the patient apparently had some work done including multiple [place] drains placed. He was discharged to a nursing facility on Rocephin and Flagyl. He subsequently returned to this facility with worsening pain. Repeat CT scan is as follows: CT abdomen and pelvis IMPRESSION: 1. The complex soft tissue density which is eroding the right side of the sacrum has increased slightly in size with increasing erosive changes of the sacrum. 2. The second area where there is sacral ulcers also more prominent. This is a complex fistulous tract which extends from the skin surface where there is a drain in place. It extends towards the right sided levator ani muscles and along the inferior margin of the coccyx. The changes of the tip of the coccyx are similar to the previous exam. This complex fistulous tract does actually cross posteriorly behind the rectum and anus region and there is a tract that extends to the left side of the levator ani muscles and appears to have a fistulous connection to the skin surface in the left buttocks region. All of these changes appears much more prominent than on the previous exam. Sepsis/Infected sacral decubitus stage IV: Complex situation with numerous fistula and evidence of tracking toward the rectum/anus area. Patient previously had imaging concerning for possible malignancy but biopsy appeared to disprove that. Patient has been on antibiotics and appears to have progressed in spite of drains being placed in [place] and of course of the antibiotics. General surgery consulted. Initially there was some thought to consider surgical intervention, however the patient has a very complicated surgical issue. Was felt the patient would likely need some additional surgical specialties including potentially plastics. He is also complicated from a medical pe rspective. Continued with broad-spectrum antibiotics with vancomycin and Zosyn. Ultimately the decision was made to try to transfer the patient back to [facility] Patient was accepted on 03/29/2020. Hypernatremia: Patient presented with a sodium of 152. Concerning for hypovolemia. He received IV hydration with normal saline. Sodium actually went up slightly and peaked at 160. IV fluids were changed to one half NS with no success. Subsequently these were changed to D5 1/4 normal with potassium Repeat on the afternoon of 03/29/2020 revealed some slight improvement Hypercalcemia: Patient presented with severe hypercalcemia. Raise the concern for possible malignancy associated with the patient's sacral lesion. Patient received IV hydration and his zolendronate. With that his calcium continued to decline through the admission. Anemia: Likely secondary to chronic disease. Stable compared to prior numbers. Abnormal EKG: On the evening of 03/28/2020 the patient was noted to be a bit tachycardic after getting moved and repositioned by nursing. Patient remained completely asymptomatic at that time. EKG appeared to be concerning for some possible ischemic changes versus chronic changes due to early repolarization anomalies. On the morning of 03/29/2020, the patient had a troponin that was normal. Patient denied any prior cardiac history. Repeat EKG appeared to be much more consistent with early repolarization abnor mality. Rate related ischemia could not be completely ruled out. Cardiology was consulted, however the patient will be transferring in [place] prior to that consult. Patient did receive 1 dose of IV beta-luis and had improvement of his heart rate down to around 100-105. Disposition: Once the patient was accepted for transfer he will be transported via ground. The hope is that the patient will have some opportunity for surgical intervention and potentially exploration for malignancy associated with this wound. Lab Results: 03/29/20 06:08 03/29/20 12:01 Abnormal Lab Results - Last 48 hrs 03/27/20 18:51: Sodium 152 H, Chloride 116 H, Carbon Dioxide 30 H, Calcium 14.5 H*, ALT Less than 7 L, Alkaline Phosphatase 135 H, Albumin 2.9 L, Globulin 3.7 H, Albumin/Globulin Ratio 0.8 L 03/27/20 18:51: WBC 19.1 H, RBC 3.81 L, Hgb 9.1 L, Hct 30.4 L, MCH 23.9 L, MCHC 30.0 L, RDW 20.7 H, Lymphocytes % 9.4 L, Monocytes % 13.4 H, Neutrophils # 13.4 H, Monocytes # 2.6 H, Eosinophils # 1.3 H 03/28/20 02:04: Sodium 153 H, Potassium 3.3 L, Chloride 118 H, Calcium 13.9 H*, ALT Less than 7 L, Alkaline Phosphatase 120 H, Albumin 2.5 L, Albumin/Globulin Ratio 0.7 L 03/28/20 10:57: PTH Intact Less than 4.0 L 03/29/20 06:08: Sodium 160 H, Potassium 3.1 L, Chloride 124 H, Calcium 13.0 H*, ALT Less than 7 L, Alkaline Phosphatase 119 H, Serum Total Protein 5.9 L, Albumin 2.7 L, Albumin/Globulin Ratio 0.8 L 03/29/20 06:08: WBC 18.6 H, RBC 3.76 L, Hgb 8.7 L, Hct 29.8 L, MCH 23.0 L, MCHC 29.1 L, RDW 21.1 H, MPV 10.5 H, Band Neuts % (Manual) 15 H, Lymphocytes % (Manual) 14 L 03/29/20 06:08: APTT 41.6 H 03/29/20 10:09: APTT 37.0 H 03/29/20 12:01: Sodium 156 H, Potassium 2.9 L*, Chloride 124 H, Calcium 12.1 H* Microbiology - Entire Visit 03/27/20 20:03 Venous blood - Right Hand Blood Culture - Preliminary NO GROWTH AT 48 HOURS 03/27/20 20:03 Venous blood - Right Arm Blood Culture - Preliminary NO GROWTH AT 48 HOURS Vitals: Vital Signs (12 hours) Temp Pulse Resp BP Pulse Ox 03/29/20 16:00 98.0 F 89 14 119/82 100 03/29/20 12:00 97.9 F 91 20 109/76 99 03/29/20 09:50 105 H 03/29/20 08:00 97.9 F 105 H 18 104/67 100 Weight Weight 176 lb 9 oz Physical Exam: The patient was seen and examined on the day of discharge. Problem (1) Sacral decubitus ulcer, stage IV Code(s): L89.154 - PRESSURE ULCER OF SACRAL REGION, STAGE 4 Status: Acute (2) Hypercalcemia Code(s): E83.52 - HYPERCALCEMIA Status: Acute (3) Hypernatremia Code(s): E87.0 - HYPEROSMOLALITY AND HYPERNATREMIA Status: Acute (4) Anemia Code(s): D64.9 - ANEMIA, UNSPECIFIED Status: Acute (5) Abnormal EKG Code(s): R94.31 - ABNORMAL ELECTROCARDIOGRAM [ECG] [EKG] Status: Acute Plan Home Medications: Medication Instructions Recorded Confirmed Type RX: Acetaminophen With Codeine 2 tablet PO Q6HR PRN 01/30/20 03/27/20 History [Tylenol with Codeine #3] RX: Atenolol 25 mg PO DAILY 01/30/20 03/27/20 History RX: FLUoxetine HCl [Prozac] 20 mg PO DAILY 01/30/20 03/27/20 History RX: Ferrous Sulfate 324 mg PO DAILY 01/30/20 03/27/20 History RX: traMADol HCl [Tramadol HCl] 2 tablet PO Q6HR PRN 01/30/20 03/27/20 History RX: Famotidine [Pepcid] 1 tab PO BID 03/27/20 03/27/20 History RX: Lactobacillus [Floranex] 1 tab PO DAILY 03/27/20 03/27/20 History RX: Oxycodone HCl [oxyCODONE HCl] 1 tab PO Q6H PRN 03/27/20 03/27/20 History RX: Pantoprazole Sodium 1 tab PO BID 03/27/20 03/27/20 History RX: Polyethylene Glycol 3350 17 gm PO BID 03/27/20 03/27/20 History [Miralax] RX: Potassium Chloride [Klor-Con 4 tab PO DAILY 03/27/20 03/27/20 History 10] RX: Sennosides/Docusate Sodium 2 tab PO HS 03/27/20 03/27/20 History [Senna-S 8.6-50 mg Tablet] RX: Zinc Sulfate [Orazinc] 1 tab PO DAILY 03/27/20 03/27/20 History RX: Acetaminophen [Tylenol Extra 1,000 mg PO Q6H PRN tab 03/29/20 Rx Strength] RX: Heparin 5,000 units SC TID vial 03/29/20 Rx RX: Morphine 2 mg SLOW IVP Q4H PRN vial 03/29/20 Rx RX: Ondansetron HCl/PF [Zofran] 4 mg IVP Q6H PRN vial 03/29/20 Rx RX: Ondansetron [Zofran ODT] 4 mg PO Q6H PRN tab 03/29/20 Rx RX: Pantoprazole [Protonix] 40 mg IVP Q12HR vial 03/29/20 Rx RX: Piperacillin/Tazobactam [Zosyn] 4.5 gm IVPB 0800,1600,2359 vial 03/29/20 Rx RX: Vancomycin HCl 1.5 gm IVPB 0800,2000 vial 03/29/20 Rx Allergies: No Known Allergies Allergy (Verified 01/30/20 03:34) Activity:: Activity as Tolerated Nourishment:: No Restrictions Disposition: OTHER HOSPITAL INPT Quality CORE MEASURES:: N/A
[2020-03-29] MEDS ORDERED: Vancomycin HCl 1.5 GM in Sodium Chloride 0.9% 250 ML 300 ML IVPB SCH (20:00)
[2020-03-29] MEDS: Senokot S 8.6-50 MG TAB PO SCH (20:19)
[2020-03-29 20:31] VITALS: BP 111/77; TEMP 97.9
[2020-03-29] MEDS: Morphine 2 MG/ML VIAL SLOW IVP PRN (22:58)
--- NOTE | 2020-03-30 00:51 | CON ---
DATE OF CONSULTATION: 03/29/2020 CONSULTING PHYSICIAN: Mekhi Bower MD REASON FOR CONSULT: Hypernatremia. REASON FOR ADMISSION: Skin ulcer. HISTORY OF PRESENT ILLNESS: A 54-year-old male with history of hypertension and diabetes, came to the hospital with a chronic wounds and on further evaluation, he was found to have hypernatremia and hypercalcemia. Calcium was 12.1, sodium low 150s and 160 and down to 156, and potassium of 2.9. PAST MEDICAL HISTORY: Positive for hypertension, GERD, type 2 diabetes, and back pain. PAST SURGICAL HISTORY: Skin surgery. HOME MEDICATIONS: Reviewed. ALLERGIES: NO KNOWN DRUG ALLERGIES. SOCIAL HISTORY: No smoking, alcohol, or illicit drugs. FAMILY HISTORY: No history of kidney disease. REVIEW OF SYSTEMS: CONSTITUTIONAL: Negative for weight loss or gain, ability to conduct usual activities. SKIN: Negative for rash, itching. EYES: Negative for double vision, pain. ENT/MOUTH: Negative for nose bleeding, neck stiffness, pain, tenderness. CARDIOVASCULAR: Negative for palpitations, dyspnea on exertion, orthopnea. RESPIRATORY: Negative for shortness of breath, wheezing, cough, hemoptysis, fever or night sweats. GASTROINTESTINAL: Negative for poor appetite, abdominal pain, heartburn, nausea, vomiting, constipation, or diarrhea. GENITOURINARY: Negative for urgency, frequency, dysuria, nocturia. MUSCULOSKELETAL: Negative for pain, swelling. NEUROLOGIC/PSYCHIATRIC: Negative for anxiety, depression. ALLERGY/IMMUNOLOGIC: Negative for skin rash, bleeding tendency. PHYSICAL EXAMINATION: GENERAL: This is a well-built male, in no apparent distress. VITAL SIGNS: Temperature 98.0, pulse 89, respiratory rate 14, and blood pressure . HEENT: Atraumatic, normocephalic. Oral mucosa moist. NECK: Supple. CV: S1 and S2 regular. RESPIRATORY: Clear. GI: Abdomen is soft. MUSCULOSKELETAL: 1+ edema. DERMATOLOGIC: No skin rash. NEUROLOGICAL: Alert and awake. PSYCHIATRIC: Normal mood and affect. LABORATORY DATA: Hemoglobin is 8.7. Potassium is 2.9, sodium is 156, BUN is 10, and creatinine is 1.02. ASSESSMENT AND PLAN: 1. Hypernatremia, most likely from volume depletion. Agree with free water supplementation. 2. Hypokalemia, replace. 3. Hypercalcemia. Check PTH and vitamin D levels and PTH related peptide. The patient was telling he was taking calcium supplements. 4. Edema, controlled. 5. Hypertension. Continue free water. Continue to replace potassium and monitor calcium. We will follow. Job ID: [id number]
== END 2020-03-29 23:10 | disposition short-term general hospital (02) | DRG 871 ==
LOC: ERS 18:19 → SURG A 21:52
PROVIDERS: ADMIT Student in an Organized Health Care Education/Training Program; ATTEND Internal Medicine
DX: A41.9 Sepsis, unspecified organism (principal); L89.154 Pressure ulcer of sacral region, stage 4; L02.31 Cutaneous abscess of buttock; E87.0 Hyperosmolality and hypernatremia; Z20.822 Contact with and (suspected) exposure to COVID-19; K21.9 Gastro-esophageal reflux disease without esophagitis; G89.29 Other chronic pain; M54.9 Dorsalgia, unspecified; E78.5 Hyperlipidemia, unspecified; F32.9 Major depressive disorder, single episode, unspecified; F12.10 Cannabis abuse, uncomplicated; E83.52 Hypercalcemia; L72.3 Sebaceous cyst; L73.2 Hidradenitis suppurativa; D63.8 Anemia in other chronic diseases classified elsewhere; R94.31 Abnormal electrocardiogram [ECG] [EKG]; I10 Essential (primary) hypertension; E87.6 Hypokalemia; Z79.899 Other long term (current) drug therapy; E11.9 Type 2 diabetes mellitus without complications; Z87.891 Personal history of nicotine dependence; Z79.891 Long term (current) use of opiate analgesic
CPT/HCPCS: 36415; 36416; 71275; 74177; 80053; 80202; 83605; 83970; 84484; 85025; 85730; 87040; 87635; 93005; 93010; 96365; 96366; 96375; C9113; J1644; J2270; J2405; J2543; J3370; J3480; J3489; J3490; J7042; J7050; Q9967; U0003; U0005

== ENCOUNTER 2020-05-04 18:52 | Inpatient (IN) | payer MEDICARE, MEDICAID ==
[2020-05-04 21:01] LABS: Hemoglobin 8.2 g/dL (14.0-18.0); Mean Corpuscular HGB CONC 31.4 g/dL (32.0-36.0); Mean Corpuscular Hemoglobin 26.7 pg (27.0-31.0); Mean Platelet Volume 7.7 fL (7.4-10.4); Platelet Count 581 thou/uL (130-400); RBC Distribution Width 18.8 % (11.5-14.5); Red Blood Cell (RBC) Count 3.09 mill/uL (4.70-6.10); White Blood Cell (WBC) Count 19.3 thou/uL (4.8-10.8)
[2020-05-04 21:18] LABS: ALT (SGPT) Less than 7 U/L (8-55); AST (SGOT) 16 U/L (5-34); Albumin 2.1 g/dL (3.5-5.0); Alkaline Phosphatase 157 U/L (40-110); Anion Gap 13 mmol/L (10-20); BUN (Urea Nitrogen) 5 mg/dL (8.4-25.7); Bilirubin, Total 0.2 mg/dL (0.2-1.2); Calc. Creatinine Clearance 0 mL/min (70-130); Calcium 8.6 mg/dL (7.8-10.44); Carbon Dioxide 22 mmol/L (22-29); Chloride 103 mmol/L (98-107); Globulin 3.8 g/dL (2.4-3.5); Glucose 94 mg/dL (70-105); Potassium 3.7 mmol/L (3.5-5.1); Protein, Total 5.9 g/dL (6.0-8.3); Sodium 134 mmol/L (136-145)
[2020-05-04 21:25] LABS: Anisocytosis SLIGHT = 6-15 cells (100X) (0-5/hpf); Band 15 % (5-11); Eosinophils 2 % (0-10); Lymphocytes 6 % (21-51); MDiff Complete? YES; Monocytes 5 % (0-10); Neutrophil 72 % (42-75); Platelet Morphology Comment Appears Increased; Toxic Granulation SLIGHT
[2020-05-04] MEDS ORDERED: Cefepime 2 GM VIAL ONE (21:48)
[2020-05-04] MEDS ORDERED: Morphine 4 MG/ML VIAL ONE (21:54)
[2020-05-04] MEDS ORDERED: VANCOMYCIN 2 GRAM/400 ML BAG 2 GM in Premix Bag 1 BAG IVPB SCH (22:00)
[2020-05-04] MEDS ORDERED: metroNIDAZOLE 500 MG/100 ML BAG ONE (22:34)
[2020-05-04 23:07] LABS: Bilirubin Negative (Negative); Blood, Urine 2+ (Negative); Clarity Extra Turbid (Clear); Glucose, Urine (Dipstick) Normal (Negative); Ketone, Urine Negative (Negative); Leukocyte 500 Leu/uL (Negative); Nitrite Negative (Negative); Protein, Urine (Dipstick) 30 mg/dL (Neg-Trace); Specific Gravity, Urine 1.039 (1.002-1.036); Squamous Epithelial 0-3 HPF (0-3); Urobilinogen Normal mg/dL (Less than 2); WBC/HPF Greater than 50 HPF (0-3)
[2020-05-04 23:18] LABS: Bacteria/HPF 4+ HPF (None Seen); Yeast-Budding Rare HPF (None Seen); Yeast-Hyphae Rare HPF (None Seen)
[2020-05-04] MEDS ORDERED: Fentanyl 100 MCG/2 ML VIAL ONE (23:24)
[2020-05-05 00:27] LABS: SARS-CoV-2 NAA Rapid Test Not Detected (NotDetected)
[2020-05-05] MEDS ORDERED: Linezolid 600 MG in Premix Bag 1 BAG IVPB SCH ×2 (01:45→14:00)
[2020-05-05] MEDS ORDERED: Morphine 2 MG/ML VIAL ONE (02:21)
[2020-05-05 04:15] VITALS: BMI 26.2
[2020-05-05] MEDS ORDERED: Ondansetron PF 4 MG/2 ML Vial IVP PRN (05:38)
[2020-05-05] MEDS ORDERED: Acetaminophen 325 MG TAB PO PRN (05:38)
[2020-05-05] MEDS ORDERED: oxyCODONE 5 MG TAB PO PRN (05:43)
[2020-05-05] MEDS ORDERED: oxyCODONE ER 20 MG TAB PO PRN (05:43)
[2020-05-05] MEDS ORDERED: HumaLOG 300 UNITS/3 ML VIAL SC PRN (06:18)
[2020-05-05] MEDS ORDERED: Dextrose 50% Abboject 50 ML SYRINGE SLOW IVP PRN (06:18)
[2020-05-05] MEDS ORDERED: Dextrose 5% in Water 1,000 ML IV PRN (06:18)
[2020-05-05] MEDS: Meropenem 2 GM in Sodium Chloride 0.9% 100 ML IVPB SCH ×2 (06:19→15:14)
[2020-05-05] MEDS: Sodium Chloride 0.9% 1,000 ML IV SCH ×2 (06:19→15:12)
[2020-05-05] MEDS ORDERED: Senokot S 8.6-50 MG TAB PO SCH (09:00)
[2020-05-05] MEDS ORDERED: Prevnar 13-Val Conj/PF 0.5 ML SYRINGE IM ONE (09:00)
[2020-05-05] MEDS ORDERED: FLUoxetine HCl 20 MG CAP PO SCH (09:00)
[2020-05-05] MEDS ORDERED: FLU VACC QS2020-21(6MOS UP)/PF 60 MCG/0.5 ML SYRINGE IM ONE (09:00)
[2020-05-05] MEDS ORDERED: Enoxaparin Sodium 40 MG/0.4 ML SYRINGE SC SCH (09:00)
[2020-05-05] MEDS: Gabapentin 300 MG CAP PO SCH ×2 (09:18→15:11)
[2020-05-05 15:43] VITALS: BP 106/58; TEMP 98.1
== END 2020-05-05 16:39 | disposition short-term general hospital (02) | DRG 871 ==
LOC: ERS 18:52 → 2NO 05-05 02:41
PROVIDERS: ADMIT Internal Medicine; ATTEND Hospitalist
DX: A41.9 Sepsis, unspecified organism (principal); L89.154 Pressure ulcer of sacral region, stage 4; N39.0 Urinary tract infection, site not specified; Z16.21 Resistance to vancomycin; Z23 Encounter for immunization; Z20.822 Contact with and (suspected) exposure to COVID-19; R65.20 Severe sepsis without septic shock; E11.9 Type 2 diabetes mellitus without complications; K21.9 Gastro-esophageal reflux disease without esophagitis; I10 Essential (primary) hypertension; E78.00 Pure hypercholesterolemia, unspecified; F32.9 Major depressive disorder, single episode, unspecified; L73.2 Hidradenitis suppurativa; Z79.899 Other long term (current) drug therapy; Z87.891 Personal history of nicotine dependence
CPT/HCPCS: 0240U; 36415; 36416; 72193; 80053; 81003; 81015; 83605; 85025; 87040; 87086; 96365; 96366; 96367; 96375; 96376; J0692; J1650; J2020; J2185; J2270; J3010; J3370; J3490; Q9967

== ENCOUNTER 2020-06-02 23:41 | Emergency (ER) | payer MEDICARE, MEDICAID ==
[2020-06-03 01:19] LABS: #Basophils 0.1 thou/uL (0.0-0.2); #Eosinphils 0.2 thou/uL (0.0-0.7); #Monocytes 1.5 thou/uL (0.11-0.59); #Neutrophils 10.4 thou/uL (1.40-6.50); %Basophils 0.6 % (0.0-1.0); %Eosinophils 1.6 % (0.0-10.0); %Lymphocytes 13.9 % (21.0-51.0); %Monocytes 10.6 % (0.0-10.0); %Neutrophils 73.3 % (42.0-75.0); Mean Corpuscular HGB CONC 30.5 g/dL (32.0-36.0); Mean Platelet Volume 7.1 fL (7.4-10.4); Platelet Count 665 thou/uL (130-400); RBC Distribution Width 17.4 % (11.5-14.5); Red Blood Cell (RBC) Count 3.08 mill/uL (4.70-6.10); White Blood Cell (WBC) Count 14.3 thou/uL (4.8-10.8)
[2020-06-03 01:49] LABS: ALT (SGPT) 21 U/L (8-55); AST (SGOT) 23 U/L (5-34); Albumin 2.5 g/dL (3.5-5.0); Alkaline Phosphatase 137 U/L (40-110); Anion Gap 14 mmol/L (10-20); BUN (Urea Nitrogen) 6 mg/dL (8.4-25.7); Bilirubin, Total 0.3 mg/dL (0.2-1.2); Calc. Creatinine Clearance 0 mL/min (70-130); Calcium 11.2 mg/dL (7.8-10.44); Carbon Dioxide 20 mmol/L (22-29); Chloride 102 mmol/L (98-107); Globulin 4.4 g/dL (2.4-3.5); Glucose 79 mg/dL (70-105); Potassium 3.8 mmol/L (3.5-5.1); Protein, Total 6.9 g/dL (6.0-8.3); Sodium 132 mmol/L (136-145)
[2020-06-03] MEDS ORDERED: Cefepime 2 GM VIAL ONE (02:54)
[2020-06-03] MEDS ORDERED: Vancomycin 1 GM/200 ML BAG ONE (04:04)
== END 2020-06-03 06:24 ==
LOC: ERS 23:41
DX: D64.9 Anemia, unspecified (principal); K21.9 Gastro-esophageal reflux disease without esophagitis; I10 Essential (primary) hypertension; E11.9 Type 2 diabetes mellitus without complications; E66.9 Obesity, unspecified; Z79.899 Other long term (current) drug therapy
CPT/HCPCS: 36415; 80053; 83605; 85025; 87040; 87070; 87077; 87186; 87205; 93005; 96365; 96367